=== PATIENT | male | born 1930 | race Caucasian/White ===

== ENCOUNTER → 2017-03-14 | Outpatient (CLI) | payer OTHER ==
[~2017-03-14] MED LIST: ASCO1POW10 PO; ASPI81TA28 PO; B COMPLEX PO; CLOP1TAB5 PO; GLIP10TA10 PO; HYT/2 PO; INSUINJ7 SC; INSUINJ8 SC; LISI-729 PO; METO25TA56 PO; NRT25 PO; SIMV40TA4 PO; SYN50 PO; VITAMIN D PO; Vitamins PO; ZNT/150 PO; [UNRECOGNIZED DRUG - OTHER] PO
--- NOTE | 2017-03-14 15:58 | DIAGNOSTIC IMAGING REPORT ---
Brain MRI WITHOUT CONTRAST HISTORY: H53.139 Sudden loss of [id number] TECHNIQUE: Multiplanar multisequence MRI of the brain was performed without the use of contrast. COMPARISON STUDY: Head CT 03/14/2016. Brain MRI 05/30/2015. FINDINGS: Brain parenchyma: There are age-related involutional changes noting mild to moderate subcortical and periventricular microangiopathic disease. There is right occipital encephalomalacia consistent with remote infarct. There is no hemorrhage or mass effect. There is no restricted diffusion to suggest acute ischemia. Rodríguez-white matter differentiation is preserved. No extra-axial fluid collection is seen. The cerebellar tonsils are normal in configuration. Ventricles, sulci, and cisterns: Prominent secondary to involutional change. Pituitary and sella: Unremarkable. Intracranial vasculature: Normal flow voids are maintained at the skull base. Orbits: The bony orbits are grossly intact. Orbital contents are normal in appearance noting bilateral ocular lens implants. Sinuses and mastoids: Clear. Calvarium: Unremarkable. Cervical cord: Partially visualized cervical spinal cord is normal in morphology and signal intensity. IMPRESSION: 1. No change from the prior study. Senescent changes as above with no hemorrhage, mass effect, or evidence of acute ischemia. 2. There is right occipital encephalomalacia consistent with an old infarct. Electronically signed by: Lorne Dawn M.D. 03/14/2017 3:56 PM Dictated Date/Time: 03/14/2017 3:49 PM
== END | disposition home or self-care (01) ==
LOC: C.MRI 14:36
PROVIDERS: ATTEND Psychiatry & Neurology Neurology
DX: H53.139 Sudden visual loss, unspecified eye (principal); G93.89 Other specified disorders of brain

== ENCOUNTER 2017-06-18 22:13 | Observation (INO) | payer OTHER ==
[~2017-06-18] VITALS: Ht 188 cm; Wt 107.7 kg
--- NOTE | 2017-06-18 22:25 | DIAGNOSTIC IMAGING REPORT ---
CT SCAN OF THE BRAIN WITHOUT IV CONTRAST CLINICAL HISTORY: Strokelike symptoms. COMPARISON STUDY: CT of the brain dated 03/14/2016. MRI of the brain dated . TECHNIQUE: Unenhanced axial CT scan of the brain is performed from the vertex to the skull base. A dose lowering technique was utilized adhering to the principles of ALARA. CT DOSE: 724.83 mGy.cm FINDINGS: Brain parenchyma: There are age-related involutional changes noting moderate subcortical and periventricular microangiopathic change. Right occipital encephalomalacia is unchanged and consistent with a remote infarct. There is no hemorrhage, mass effect, or evidence of acute territorial ischemia by CT criteria. Rodríguez-white matter is preserved. No extra-axial fluid collection is seen. Ventricles, sulci, cisterns: Prominent secondary to involutional change. Intracranial vasculature: There is advanced atherosclerotic calcification of the cavernous carotid and vertebral arteries. Calvarium: Unremarkable. Sinuses and mastoids: The visualized paranasal sinuses are clear. The mastoid air cells are well pneumatized. Orbits: The bony orbits are grossly intact. There are bilateral ocular lens implants. IMPRESSION: Senescent changes and remote infarct as above. There is no hemorrhage, mass effect, or evidence of acute territorial ischemia by CT criteria. Electronically signed by: Kevin Ge M.D. 06/18/2017 10:24 PM Dictated Date/Time: 06/18/2017 10:21 PM
--- NOTE | 2017-06-18 22:41 | DIAGNOSTIC IMAGING REPORT ---
SINGLE VIEW CHEST CLINICAL HISTORY: Weakness. Change in mental status. FINDINGS: An AP, portable, upright chest radiograph is compared to study dated 02/03/2016. The examination is degraded by portable technique and patient rotation. The patient is status post midline sternotomy. The heart is enlarged and there is atherosclerotic calcification of the thoracic aorta. The pulmonary vasculature is noncongested. Bibasilar atelectasis is noted. No airspace consolidation or large pleural effusion is identified. No pneumothorax is seen. The skeletal structures are osteopenic. The bony thorax is grossly intact. Atherosclerotic calcification is noted in the carotid bulbs. IMPRESSION: Cardiomegaly with no acute cardiopulmonary abnormality. Electronically signed by: Kevin Ge M.D. 06/18/2017 10:40 PM Dictated Date/Time: 06/18/2017 10:39 PM
[2017-06-18 23:12] LABS: BASO % 0.4 %; BASO ABS # 0.05 K/uL (0-0.2); EOS % 2.6 %; EOS ABS # 0.34 K/uL (0-0.5); HEMOGLOBIN 13.9 g/dL (14.0-18.0); IG# 0.03 K/uL (0.00-0.02); LYMPH % 31.8 %; LYMPH ABS # 4.17 K/uL (1.2-3.4); MEAN CELL VOLUME 90.1 fL (80-100); MEAN CORPUSCULAR HEMOGLOBIN 30.5 pg (25-34); MEAN CORPUSCULAR HGB CONC 33.9 g/dl (32-36); MEAN PLATELET VOLUME 11.8 fL (7.4-10.4); MONO % 10.7 %; NEUT % 54.3 %; NEUT ABS # 7.12 K/uL (1.4-6.5); PLATELET COUNT 214 K/uL (130-400); RED CELL DISTRIBUTION WIDTH CV 13.7 % (11.5-14.5); RED CELL DISTRIBUTION WIDTH SD 45.2 fL (36.4-46.3); WHITE BLOOD COUNT 13.11 K/uL (4.8-10.8)
[2017-06-18 23:31] LABS: ALBUMIN 2.8 gm/dl (3.4-5.0); ALT/SGPT 23 U/L (12-78); BLOOD UREA NITROGEN 13 mg/dl (7-18); CALCIUM 8.2 mg/dl (8.5-10.1); CARBON DIOXIDE 25 mmol/L (21-32); CREATININE 1.44 mg/dl (0.60-1.40); GLUCOSE 106 mg/dl (70-99); LIPASE 115 U/L (73-393); POTASSIUM 4.1 mmol/L (3.5-5.1); SODIUM 135 mmol/L (136-145)
[2017-06-18 23:40] LABS: ALKALINE PHOSPHATASE 59 U/L (45-117); AST/SGOT 18 U/L (15-37); CKMB 0.7 ng/ml (0.5-3.6)
[2017-06-19] VITALS (10 sets, daily range): BP systolic 109–151; BP diastolic 61–78; PULSE 57–69; TEMP 36.2–36.8; O2SAT 94–97; Ht 188 cm; Wt 107.7 kg
--- NOTE | 2017-06-19 02:40 | EMERGENCY ROOM VISIT NOTE ---
History Report prepared by Giovanny: Sherwin Flores Under the Supervision of: Dr. Alverto Howard D.O. First contact with patient: 22:17 Chief Complaint: STROKE SYMPTOMS Stated Complaint: STROKE ALERT History of Present Illness The patient is an 86 year old male who presents to the Emergency Room with complaints of an episode of resolved weakness that occurred prior to arrival. The nursing staff states when EMS was called, the patient did not know he was the kitchen and was not oriented. They report when EMS arrived, the patient was able to explain where he was and who he is. Nursing staff notes the patient's blood sugar was 150 for EMS and 118 in the room. The patient's only stated complaint is trouble swallowing that developed a couple days ago. He denies chest pain, shortness of breath, and abdominal pain. Source of History: patient, nursing staff Onset: DRILLING [employer]VIS[employer] Position: other (global) Quality: other (weakness) Timing: resolved Associated Symptoms: No chest pain, No SOB, No abdominal pain Note: Associated symptoms: trouble swallowing Review of Systems See HPI for pertinent positives & negatives. A total of 10 systems reviewed and were otherwise negative. Past Medical & Surgical Medical Problems: (1) Diabetes (2) Fall (3) Hand contusion (4) Progressive supranuclear palsy (5) Stroke Family History Patient reports no known family medical history. Social History Smoking Status: Never Smoker Alcohol Use: none Drug Use: none Marital Status: Occupation Status: retired Current/Historical Medications Scheduled Ascorbic Acid (Vitamin C), 3.5 GM PO QAM Aspirin (Aspirin Ec), 81 MG PO QAM Clopidogrel Bisulfate (Plavix), 75 MG PO HS Glipizide (Glipizide), 15 MG PO QAM Insulin (Novolin R), UNITS SC UD Insulin Nph (Novolin-N), 30 UNITS SC BID Levothyroxine Sodium (Synthroid), 50 MCG PO QAM Lisinopril (Zestril), 2.5 MG PO QAM Metoprolol Tartrate (Lopressor) (Lopressor), 25 MG PO QAM Nortriptyline HCl (Nortriptyline HCl), 25 MG PO HS Ranitidine Hcl (Zantac), 150 MG PO BID Simvastatin (Zocor), 20 MG PO HS Terazosin Hcl (Hytrin), 4 MG PO HS [B Complex], 3.5 GM PO QAM [Vitamin D & K], 3.5 GM PO QAM [Vitamins], 1 DOSE PO QAM Allergies Coded Allergies: No Known Allergies (Unverified , 06/18/17) Physical Exam Vital Signs Date Time Temp Pulse Resp B/P (MAP) Pulse Ox O2 Delivery O2 Flow Rate FiO2 06/19/17 01:06 60 112/64 95 Room Air 06/18/17 23:21 61 24 112/60 93 Room Air 06/18/17 22:47 92 Room Air 06/18/17 22:36 37.7 64 20 123/65 93 Room Air 06/18/17 22:31 68 Physical Exam VITAL SIGNS: were reviewed as above. GENERAL:Non-toxic in appearance. SKIN: Warm dry and pink. HEAD: Normocephalic and atraumatic. OROPHARYNX: Is clear and moist NECK: Supple without lymphadenopathy or meningismus. LUNGS: clear. HEART: Regular rate and rhythm. ABDOMEN: Soft and nontender. EXTREMITIES: Warm and well perfused. NEUROLOGICALLY: Awake alert and oriented without focal deficit. Cranial nerves 2 -12 are intact. There is no pronator drift. Cerebellar testing is within normal limits. There is no nystagmus. There is no facial droop. Speech is clear. Vision is grossly normal. MUSCULOSKELETAL: Good muscle tone. No evidence of trauma. Medical Decision & Procedures ER Provider Diagnostic Interpretation: Radiology results as stated below per my review and radiologist interpretation: CT SCAN OF THE BRAIN WITHOUT IV CONTRAST CLINICAL HISTORY: Strokelike symptoms. COMPARISON STUDY: CT of the brain dated 03/14/2016. MRI of the brain dated . TECHNIQUE: Unenhanced axial CT scan of the brain is performed from the vertex to the skull base. A dose lowering technique was utilized adhering to the principles of ALARA. CT DOSE: 724.83 mGy.cm FINDINGS: Brain parenchyma: There are age-related involutional changes noting moderate subcortical and periventricular microangiopathic change. Right occipital encephalomalacia is unchanged and consistent with a remote infarct. There is no hemorrhage, mass effect, or evidence of acute territorial ischemia by CT criteria. Rodríguez-white matter is preserved. No extra-axial fluid collection is seen. Ventricles, sulci, cisterns: Prominent secondary to involutional change. Intracranial vasculature: There is advanced atherosclerotic calcification of the cavernous carotid and vertebral arteries. Calvarium: Unremarkable. Sinuses and mastoids: The visualized paranasal sinuses are clear. The mastoid air cells are well pneumatized. Orbits: The bony orbits are grossly intact. There are bilateral ocular lens implants. IMPRESSION: Senescent changes and remote infarct as above. There is no hemorrhage, mass effect, or evidence of acute territorial ischemia by CT criteria. Electronically signed by: Kevin Ge M.D. 06/18/2017 10:24 PM Dictated Date/Time: 06/18/2017 10:21 PM SINGLE VIEW CHEST CLINICAL HISTORY: Weakness. Change in mental status. FINDINGS: An AP, portable, upright chest radiograph is compared to study dated 02/03/2016. The examination is degraded by portable technique and patient rotation. The patient is status post midline sternotomy. The heart is enlarged and there is atherosclerotic calcification of the thoracic aorta. The pulmonary vasculature is noncongested. Bibasilar atelectasis is noted. No airspace consolidation or large pleural effusion is identified. No pneumothorax is seen. The skeletal structures are osteopenic. The bony thorax is grossly intact. Atherosclerotic calcification is noted in the carotid bulbs. IMPRESSION: Cardiomegaly with no acute cardiopulmonary abnormality. Electronically signed by: Kevin Ge M.D. 06/18/2017 10:40 PM Dictated Date/Time: 06/18/2017 10:39 PM Laboratory Results 06/18/17 22:33 Red Blood Count 4.55, Mean Corpuscular Volume 90.1, Mean Corpuscular Hemoglobin 30.5, Mean Corpuscular Hemoglobin Concent 33.9, Mean Platelet Volume 11.8, Neutrophils (%) (Auto) 54.3, Lymphocytes (%) (Auto) 31.8, Monocytes (%) (Auto) 10.7, Eosinophils (%) (Auto) 2.6, Basophils (%) (Auto) 0.4, Neutrophils # (Auto ) 7.12, Lymphocytes # (Auto) 4.17, Monocytes # (Auto) 1.40, Eosinophils # (Auto ) 0.34, Basophils # (Auto) 0.05 06/18/17 22:33 Test 06/18/17 22:25 06/18/17 22:33 06/18/17 23:00 Bedside Prothrombin Time INR 1.1 (0.9-1.1) Bedside Glucose 118 mg/dl (70-99) White Blood Count 13.11 K/uL (4.8-10.8) Red Blood Count 4.55 M/uL (4.7-6.1) Hemoglobin 13.9 g/dL (14.0-18.0) Hematocrit 41.0 % (42-52) Mean Corpuscular Volume 90.1 fL (80-100) Mean Corpuscular Hemoglobin 30.5 pg (25-34) Mean Corpuscular Hemoglobin Concent 33.9 g/dl (32-36) Platelet Count 214 K/uL (130-400) Mean Platelet Volume 11.8 fL (7.4-10.4) Neutrophils (%) (Auto) 54.3 % Lymphocytes (%) (Auto) 31.8 % Monocytes (%) (Auto) 10.7 % Eosinophils (%) (Auto) 2.6 % Basophils (%) (Auto) 0.4 % Neutrophils # (Auto) 7.12 K/uL (1.4-6.5) Lymphocytes # (Auto) 4.17 K/uL (1.2-3.4) Monocytes # (Auto) 1.40 K/uL (0.11-0.59) Eosinophils # (Auto) 0.34 K/uL (0-0.5) Basophils # (Auto) 0.05 K/uL (0-0.2) RDW Standard Deviation 45.2 fL (36.4-46.3) RDW Coefficient of Variation 13.7 % (11.5-14.5) Immature Granulocyte % (Auto) 0.2 % Immature Granulocyte # (Auto) 0.03 K/uL (0.00-0.02) Prothrombin Time 10.8 SECONDS (9.0-12.0) Prothromb Time International Ratio 1.0 (0.9-1.1) Activated Partial Thromboplast Time 28.0 SECONDS (21.0-31.0) Partial Thromboplastin Ratio 1.1 Anion Gap 7.0 mmol/L (3-11) Est Creatinine Clear Calc Drug Dose 50.0 ml/min Estimated GFR () 51.0 Estimated GFR (Non- 44.0 BUN/Creatinine Ratio 9.2 (10-20) Calcium Level 8.2 mg/dl (8.5-10.1) Magnesium Level 1.8 mg/dl (1.8-2.4) Total Bilirubin 0.4 mg/dl (0.2-1) Direct Bilirubin 0.1 mg/dl (0-0.2) Aspartate Amino Transf (AST/SGOT) 18 U/L (15-37) Alanine Aminotransferase (ALT/SGPT) 23 U/L (12-78) Alkaline Phosphatase 59 U/L (45-117) Total Creatine Kinase 81 U/L (39-308) Creatine Kinase MB 0.7 ng/ml (0.5-3.6) Creatine Kinase MB Ratio 0.9 (0-3.0) Troponin I < 0.015 ng/ml (0-0.045) Total Protein 7.0 gm/dl (6.4-8.2) Albumin 2.8 gm/dl (3.4-5.0) Lipase 115 U/L (73-393) Thyroid Stimulating Hormone (TSH) 2.460 uIu/ml (0.300-4.500) Urine Color DK YELLOW Urine Appearance CLEAR (CLEAR) Urine pH 6.5 (4.5-7.5) Urine Specific Robinson 1.023 (1.000-1.030) Urine Protein NEG (NEG) Urine Glucose (UA) NEG (NEG) Urine Ketones TRACE (NEG) Urine Occult Blood NEG (NEG) Urine Nitrite NEG (NEG) Urine Bilirubin NEG (NEG) Urine Urobilinogen NEG (NEG) Urine Leukocyte Esterase NEG (NEG) Urine WBC (Auto) 1-5 /hpf (0-5) Urine RBC (Auto) 0-4 /hpf (0-4) Urine Hyaline Casts (Auto) 0 /lpf (0-5) Urine Epithelial Cells (Auto) 5-10 /lpf (0-5) Urine Bacteria (Auto) NEG (NEG) Laboratory results as stated above per my review. ECG Indication: weakness Rate (beats per minute): 61 Rhythm: normal sinus Findings: no acute ischemic change, no ectopy ED Course 2224: Previous medical records were reviewed. The patient was evaluated in room B01. A complete history and physical examination was performed. 0158: The patient is going to try and ambulate with a walker. If he is able to ambulate without difficulty, he will be discharged home. 0214: On reevaluation, the patient is unable to support himself and ambulate with a walker. I discussed the results and findings with him. The patient verbalized agreement of the treatment plan. The patient will be evaluated for further management and care. 226: I discussed the patient's case with Dr. Manish Stearns, [facility] Hospitalist. The patient will be evaluated for further management and care. Medical Decision Differentials include: Acute coronary syndrome, myocardial infarction, CVA, TIA , anemia, infection, pneumonia, UTI, pyelonephritis, poor nutrition, dehydration , electrolyte disturbance, and hypoglycemia. This is a 86-year-old male who presents to the ED with a chief complaint of generalized weakness. The patient, according to the , normally walks with a walker. Today he was walking with a walker and suddenly started dragging his leg. She states that then he was unable to bear his weight and she had the lower abdomen around. EMS was called and the patient was brought in. He was initially a stroke alert because of some slurring of speech. This is apparently chronic and the patient has some history of dysphagia. The patient' s neurological exam here on his arrival did not reveal any obvious stroke symptoms. He was moving all 4 extremities. He is answering questions appropriately. He does report a sore throat. Throat appeared to be clear. There is no exudates or ulcerations. His breathing appears to be comfortable. CT scan of the brain revealed no acute abnormalities. Chest x-ray was negative for acute disease. Urine did not show infection. There was trace ketones. CBC is unremarkable, complete metabolic panel was unremarkable and troponin was negative. EKG not show ischemic changes. After evaluation, the patient underwent an ambulatory trial here. He was unable to bear his own weight on a walker. The patient has reportedly been going to [facility] rehabilitation as an outpatient. I did suggest to the that he may benefit from inpatient rehabilitation. The patient will be seen by the hospitalist service for further inpatient evaluation and care. There is no obvious stroke on my exam and I think that he might have a virus as he reports a sore throat. This might be causing some additional deconditioning and weakness that resulted in the patient's symptoms tonight. Medication Reconcilliation Current Medication List: was personally reviewed by me Blood Pressure Screening Patient's blood pressure: Normal blood pressure Blood pressure disposition: Did not require urgent referral Consults Time Called: 220 Consulting Physician: Dr. Manish Stearns, [facility] Hospitalist Returned Call: [phone] I discussed the patient's case with Dr. Manish Stearns [facility] Hospitalist. The patient will be evaluated for further management and care. Impression Primary Impression: Weakness Scribe Attestation The scribe's documentation has been prepared under my direction and personally reviewed by me in its entirety. I confirm that the note above accurately reflects all work, treatment, procedures, and medical decision making performed by me. Departure Information Dispostion Being Evaluated By Hospitalist Referrals Lorne Garrett D.O. (PCP) Patient Instructions My [facility]
[2017-06-19] MEDS ORDERED: GLUCOSE 40% GEL 15 GM TUBE PO PRN (04:15)
[2017-06-19] MEDS ORDERED: GLUCOSE 10 TABS/TUBE PO PRN (04:15)
[2017-06-19] MEDS ORDERED: ONDANSETRON INJ 2 MG/ML 2 ML VIAL IV PRN (04:15)
[2017-06-19] MEDS ORDERED: DEXTROSE 50% 50 ML SYR IV PRN (04:15)
[2017-06-19] MEDS ORDERED: MAGNESIUM HYDROXIDE SUSP 30 ML UDC PO PRN (04:15)
[2017-06-19] MEDS ORDERED: GLUCAGON FOR INJ 1 MG VIAL SQ PRN (04:15)
[2017-06-19] MEDS ORDERED: ACETAMINOPHEN 325 MG TAB PO PRN (04:15)
--- NOTE | 2017-06-19 04:27 | History and Physical ---
History & Physical Date & Time of Service: Jun 19, 2017 at 04:22 Chief Complaint: Stroke Alert Primary Care Physician: Lorne Garrett D.O. History of Present Illness Source: patient, family Patient is an 86 year old male with a past medical history of progressive supranuclear palsy, stroke, hypertension, hyperlipidemia, and diabetes that presents after experiencing an episode of weakness and disorientation at 9:30 pm yesterday evening. The patient was with his when he got up to go to bed and while using his walker after a few steps he started dragging his right foot , followed by leaning to his right, and finally falling over on the counter in the kitchen. The patients daughter called the EMS who at that time stated he was disoriented. The patient had a similar episode of unsteadiness one week prior on the 10 of June but that resolved quickly and did not require medical treatment. The patient also has had a sore throat for the last 3 days but no additional symptoms. On arrival to the ED the patient was found to be alert and oriented and his weakness at that time had resolved. His head CT was found to be normal and his only significant lab abnormality was a borderline elevated white count. The patient currently goes to rehab twice per week at [facility] and the family was very concerned with his recent mobility, also stating that he has recently had prisms placed with his glasses and is now seeing in monovision for the first time since his stroke 10 years ago. The patient has had recurrent slowed speech, vision abnormalities, short term memory loss, and mobility issues since he suffered his stroke 10 years ago during bypass surgery. The patient has seen Dr. Kenney in the past who diagnosed him with progressive supranuclear palsy. At this time the patient denies any headache, fever, or chills, and his family states he is at his baseline speech, cognitive function, and orientation. Past Medical/Surgical History Medical Problems: (1) Diabetes Status: Chronic (2) Fall Status: Resolved (3) Hand contusion Status: Resolved (4) Stroke Status: Resolved Family History Patient reports no known family medical history. Social History Smoking Status: Never Smoker Smokeless Tobacco Use: No Alcohol Use: none Drug Use: none Marital Status: Housing status: lives with family Occupational Status: retired Immunizations History of Influenza Vaccine: Unknown History of Tetanus Vaccine?: Unknown History of Pneumococcal: Unknown History of Hepatitis B Vaccine: Unknown Multi-Drug Resistant Organisms History of MDRO: No Allergies Coded Allergies: No Known Allergies (Unverified , 06/18/17) Home Medications Scheduled Ascorbic Acid (Vitamin C), 3.5 GM PO QAM Aspirin (Aspirin Ec), 81 MG PO QAM Clopidogrel Bisulfate (Plavix), 75 MG PO HS Glipizide (Glipizide), 15 MG PO QAM Insulin (Novolin R), UNITS SC UD Insulin Nph (Novolin-N), 30 UNITS SC BID Levothyroxine Sodium (Synthroid), 50 MCG PO QAM Lisinopril (Zestril), 2.5 MG PO QAM Metoprolol Tartrate (Lopressor) (Lopressor), 25 MG PO QAM Nortriptyline HCl (Nortriptyline HCl), 25 MG PO HS Ranitidine Hcl (Zantac), 150 MG PO BID Simvastatin (Zocor), 20 MG PO HS Terazosin Hcl (Hytrin), 4 MG PO HS [B Complex], 3.5 GM PO QAM [Vitamin D & K], 3.5 GM PO QAM [Vitamins], 1 DOSE PO QAM Review of Systems Constitutional: + weakness, + fatigue, No fever, No chills, No weight loss Eyes: No worsening of vision, No diplopia ENT: + sore throat, No hearing loss, No tinnitus Respiratory: No cough, No sputum, No shortness of breath Cardiovascular: No chest pain, No palpitations Abdomen: No pain, No nausea, No vomiting Genitourinary - Male: No hematuria, No dysuria Neurologic: + memory loss, + weakness, + balance problems, No numbness/tingling , No vertigo Endocrine: + fatigue, No excessive urination Physical Exam Vital Signs Date Time Temp Pulse Resp B/P (MAP) Pulse Ox O2 Delivery O2 Flow Rate FiO2 06/19/17 02:39 60 112/64 95 Room Air 06/19/17 01:06 60 112/64 95 Room Air 06/18/17 23:21 61 24 112/60 93 Room Air 06/18/17 22:47 92 Room Air 06/18/17 22:36 37.7 64 20 123/65 93 Room Air 06/18/17 22:31 68 General Appearance: WD/WN, no apparent distress Head: normocephalic, atraumatic Eyes: normal inspection, sclerae normal ENT: + pertinent finding (Cerumen impaction) Neck: supple, no JVD, no carotid bruits Respiratory/Chest: chest non-tender, lungs clear, normal breath sounds Cardiovascular: regular rate, rhythm, no gallop, no murmur Abdomen/GI: normal bowel sounds, non tender, soft Extremities/Musculoskelatal: normal inspection, no calf tenderness, no pedal edema Neurologic/Psych: manager supplier II-XII nml as tested, alert, oriented x 3, + pertinent finding (Slowed speech) Diagnostics Laboratory Results Results Past 24 Hours Test 06/18/17 22:25 06/18/17 22:33 06/18/17 23:00 Range/Units Bedside Prothrombin Time INR 1.1 0.9-1.1 Bedside Glucose 118 70-99 mg/dl White Blood Count 13.11 4.8-10.8 K/uL Red Blood Count 4.55 4.7-6.1 M/uL Hemoglobin 13.9 14.0-18.0 g/dL Hematocrit 41.0 42-52 % Mean Corpuscular Volume 90.1 80-100 fL Mean Corpuscular Hemoglobin 30.5 25-34 pg Mean Corpuscular Hemoglobin Concent 33.9 32-36 g/dl Platelet Count 214 130-400 K/uL Mean Platelet Volume 11.8 7.4-10.4 fL Neutrophils (%) (Auto) 54.3 % Lymphocytes (%) (Auto) 31.8 % Monocytes (%) (Auto) 10.7 % Eosinophils (%) (Auto) 2.6 % Basophils (%) (Auto) 0.4 % Neutrophils # (Auto) 7.12 1.4-6.5 K/uL Lymphocytes # (Auto) 4.17 1.2-3.4 K/uL Monocytes # (Auto) 1.40 0.11-0.59 K/uL Eosinophils # (Auto) 0.34 0-0.5 K/uL Basophils # (Auto) 0.05 0-0.2 K/uL RDW Standard Deviation 45.2 36.4-46.3 fL RDW Coefficient of Variation 13.7 11.5-14.5 % Immature Granulocyte % (Auto) 0.2 % Immature Granulocyte # (Auto) 0.03 0.00-0.02 K/uL Prothrombin Time 10.8 9.0-12.0 SECONDS Prothromb Time International Ratio 1.0 0.9-1.1 Activated Partial Thromboplast Time 28.0 21.0-31.0 SECONDS Partial Thromboplastin Ratio 1.1 Sodium Level 135 136-145 mmol/L Potassium Level 4.1 3.5-5.1 mmol/L Chloride Level 103 98-107 mmol/L Carbon Dioxide Level 25 21-32 mmol/L Anion Gap 7.0 3-11 mmol/L Blood Urea Nitrogen 13 7-18 mg/dl Creatinine 1.44 0.60-1.40 mg/dl Est Creatinine Clear Calc Drug Dose 50.0 ml/min Estimated GFR () 51.0 Estimated GFR (Non- 44.0 BUN/Creatinine Ratio 9.2 10-20 Random Glucose 106 70-99 mg/dl Calcium Level 8.2 8.5-10.1 mg/dl Magnesium Level 1.8 1.8-2.4 mg/dl Total Bilirubin 0.4 0.2-1 mg/dl Direct Bilirubin 0.1 0-0.2 mg/dl Aspartate Amino Transf (AST/SGOT) 18 15-37 U/L Alanine Aminotransferase (ALT/SGPT) 23 12-78 U/L Alkaline Phosphatase 59 45-117 U/L Total Creatine Kinase 81 39-308 U/L Creatine Kinase MB 0.7 0.5-3.6 ng/ml Creatine Kinase MB Ratio 0.9 0-3.0 Troponin I < 0.015 0-0.045 ng/ml Total Protein 7.0 6.4-8.2 gm/dl Albumin 2.8 3.4-5.0 gm/dl Lipase 115 73-393 U/L Thyroid Stimulating Hormone (TSH) 2.460 0.300-4.500 uIu/ml Urine Color DK YELLOW Urine Appearance CLEAR CLEAR Urine pH 6.5 4.5-7.5 Urine Specific [place] 1.023 1.000-1.030 Urine Protein NEG NEG Urine Glucose (UA) NEG NEG Urine Ketones TRACE NEG Urine Occult Blood NEG NEG Urine Nitrite NEG NEG Urine Bilirubin NEG NEG Urine Urobilinogen NEG NEG Urine Leukocyte Esterase NEG NEG Urine WBC (Auto) 1-5 0-5 /hpf Urine RBC (Auto) 0-4 0-4 /hpf Urine Hyaline Casts (Auto) 0 0-5 /lpf Urine Epithelial Cells (Auto) 5-10 0-5 /lpf Urine Bacteria (Auto) NEG NEG Impression Assessment and Plan Patient is an 86 year old male with a past medical history of progressive supranuclear palsy, stroke, hypertension, hyperlipidemia, and diabetes that presents after experiencing an episode of weakness and disorientation at 9:30pm yesterday evening. 1) Generalized Weakness - Admit to telemetry - CT Head: Senescent changes and remote infarct. There is no hemorrhage, mass effect, or evidence of acute territorial ischemia. - MRI Brain Combo - Carotid Doppler - X-Ray lumbar spine and pelvis - Neurology consult - PT/OT 2) CAD - Resume home Aspirin and Plavix - Monitor on telemetry - Troponin 0.015 3) Diabetes Mellitus - BSG currently well controlled with Metformin and Insulin at home - Has not eaten since 8am yesterday --> At this time will order sliding scale insulin and hold other home insulins - HbA1c 4) Hypertension - Resume home Lisinopril and Lopressor 5) Hypothyroidism - Resume home Synthroid 6) Hyperlipidemia - Resume home Zocor 7) BPH - Resume home Hytrin 8) DVT Prophylaxis - SCDs 9) Code Status - Full Resuscitation Attending addendum: I have physically seen this patient, have supervised the medical residents activities, and agree with the H&P unless as otherwise noted. Assessment and Plan: Episode of Generalized weakness and disorientation/history of progressive supranuclear palsy/CVA/normal CT of head for acute event-- Question of dragging like while attempting to walk Order MRI of brain combo and carotid Dopplers Order x-ray lumbar spine, pelvis and hips Consult PT/OT/social science teacher/neurology CAD/hypertension-- The patient will be admitted to telemetry for serial cardiac enzymes, serial EKG's, cardiac rhythm monitoring and a 2-D echocardiogram with Dopplers. Continue aspirin, Plavix, lisinopril and Metoprolol tartrate. Level of Care Telemetry Advanced Directives Existing Advance Directive: No Existing Living Will: No Existing Power of Facilities Management Executive: No Resuscitation Status FULL RESUSCITATION VTE Prophylaxis VTE Risk Assessment Done? Y/N: Yes Risk Level: Moderate Given or contraindicated: SCD's Resident Tracking Resident Involvement: Resident Care Provided Care Provided: Adult [facility]
[2017-06-19] MEDS ORDERED: IV FLUIDS COMPLETED PRN (04:45)
[2017-06-19] MEDS: SODIUM CHLORIDE 0.9% 1000ML 1,000 ML IV SCH ×2 (06:41→19:29)
--- NOTE | 2017-06-19 06:47 | DIAGNOSTIC IMAGING REPORT ---
CAROTID DOPPLER NECK ART HISTORY: Mental status change weakness COMPARISON: None. TECHNIQUE: Real-time, grayscale, and color Doppler sonography of the carotid arteries was performed. Imaging reviewed in the transverse and longitudinal planes. All measurements were calculated based on NASCET criteria. FINDINGS: Antegrade flow is seen in the bilateral vertebral arteries. The brachial pressures are hemodynamically similar. Moderate plaque formation bilaterally The peak systolic velocity within the right ICA is 96. The right systolic ratio is 0.9. The peak systolic velocity within the left ICA is 154. The left systolic ratio is 1.5. IMPRESSION: 1. 50-60% stenosis left internal carotid artery. 2. Moderate plaque formation bilaterally. The above report was generated using voice recognition software. It may contain grammatical, syntax or spelling errors. Electronically signed by: Ramon Saldivar M.D. 06/19/2017 6:46 AM Dictated Date/Time: 06/19/2017 6:45 AM
--- NOTE | 2017-06-19 07:09 | DIAGNOSTIC IMAGING REPORT ---
FLUOROSCOPIC IMAGES OF THE LUMBAR SPINE CLINICAL HISTORY: Lower extremity weakness. COMPARISON: Lumbar spine CT February 03, 2016. FLUOROSCOPY TIME: FINDINGS: No acute lumbar spine fracture is identified. There is mild levoscoliosis of the lumbar spine. Mild retrolisthesis of L2 on L3 with marked disc space narrowing at this level is noted. There is moderate multilevel facet arthrosis. Extensive atherosclerotic calcification of the abdominal aorta is incidentally noted. IMPRESSION: 1. No acute lumbar spine fracture or subluxation. 2. Severe disc space narrowing at L2-L3. Overall, moderate multilevel degenerative disc disease and facet arthrosis. 3. Mild levoscoliosis of the lumbar spine. Electronically signed by: Joshua Willis M.D. 06/19/2017 7:07 AM Dictated Date/Time: 06/19/2017 7:05 AM
--- NOTE | 2017-06-19 07:20 | DIAGNOSTIC IMAGING REPORT ---
PELVIS ONE VIEW HISTORY: lower extremity weakness COMPARISON: None. FINDINGS: There is no fracture or dislocation. Soft tissues are unremarkable. Mild osteoarthritis within the bilateral hips. Vascular calcifications are noted. The sacrum appears intact. IMPRESSION: No fracture or dislocation within the pelvis or hips. Electronically signed by: Lorne Dawn M.D. 06/19/2017 7:19 AM Dictated Date/Time: 06/19/2017 7:17 AM
[2017-06-19] MEDS ORDERED: GADAVIST IV PRN (08:30)
--- NOTE | 2017-06-19 09:00 | DIAGNOSTIC IMAGING REPORT ---
MRI OF THE BRAIN WITHOUT AND WITH IV CONTRAST CLINICAL HISTORY: Generalized weakness. COMPARISON STUDY: MRI the brain March 14, [address] June 18, 2017. TECHNIQUE: Utilizing a 1.5 Naz magnet and dedicated coil, multiplanar, multiecho imaging of the brain was performed pre and postcontrast administration. IV administration of 10.5 mL of Gadavist contrast was uneventful. FINDINGS: There are no foci of restricted diffusion. No acute intracranial hemorrhage, midline shift or mass effect is present. Ventricular dilatation is unchanged and due to atrophy. There is extensive atrophy. An old infarct within the right occipital lobe is noted. There is no intracranial mass or pathologic enhancement. Flow-voids for the major intracranial vessels are present. There is mild mucosal thickening of the ethmoid sinuses. Orbits are unremarkable. Calvarial signal is maintained. The appearance of the brain is unchanged study of March 14, 2017. White matter T2 hyperintense foci represent small vessel disease. IMPRESSION: 1. No acute intracranial findings. 2. No change since MRI of March 14, 2017. Old right occipital lobe infarct and extensive atrophy. Electronically signed by: Joshua Willis M.D. 06/19/2017 8:58 AM Dictated Date/Time: 06/19/2017 8:41 AM
[2017-06-19] MEDS ORDERED: PERFLUTREN LIPID MICROSPHERE (DEFINITY) IV ONE (09:28)
[2017-06-19] MEDS: INSULIN ASPART 100 UNITS/ML 3 ML PEN SC SCH ×4 (09:50→20:24)
--- NOTE | 2017-06-19 10:26 | Neurology Consultation ---
Neurology Consultation Date of Consultation: Jun 19, 2017. Attending Physician: Trey Story M.D. Primary Care Physician: Lorne Garrett D.O. Reason for Consultation: Weakness History of Present Illness Source: clinic records, hospital records The patient is an 86-year-old male who has been admitted to the hospital for further evaluation and management of an episode of weakness and confusion that occurred prior to arrival and has subsequently resolved. 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 Kenney for the past few years. His condition has been characterized by progressive gait dysfunction, episodic retropulsion, persistent dysarthria, vertical gaze palsy, and mild dementia. He has not tolerated a previous trial of levodopa. Unfortunately, his neurodegenerative condition has continued to decline. He was last seen in the outpatient clinic on 03/28/2017. Outpatient physical therapy have been recommended. However, in light of this patient's progressive deterioration it was felt that inpatient assessment was most appropriate. Past medical history also notable for a chronic right occipital lobe infarct and diabetes mellitus. Currently, the patient does not have any new or specific complaints although he seems to be a limited historian. I reviewed the CT of the head completed upon presentation. The study reveals a chronic right occipital lobe infarct as well as a moderate degree of chronic microangiopathic disease. A carotid duplex reveals a 50-60% stenosis of the left internal carotid artery. I reviewed the images and radiologist's interpretation of the recently completed brain MRI. This study reveals the chronic right occipital lobe infarct, generalized atrophy, and chronic microangiopathic disease. There is no evidence of acute or subacute process. Past Medical/Surgical History Medical Problems: (1) Food impaction of esophagus Status: Acute (2) Head contusion Status: Acute (3) Weakness Status: Acute Family History Noncontributory Social History Drug Use: none Marital Status: Occupation Status: retired Allergies Coded Allergies: No Known Allergies (Unverified , 06/18/17) Current Inpatient Medications Current Inpatient Medications Medications (Trade) Dose Ordered Sig/Ezra Route Start Time Stop Time Status Last Admin Dose Admin Acetaminophen (Tylenol Tab) 650 mg Q4H PRN PO 06/19/17 04:15 07/19/17 04:14 Magnesium Hydroxide (Milk Of Magnesia Susp) 30 ml Q12H PRN PO 06/19/17 04:15 07/19/17 04:14 Ondansetron HCl (Zofran Inj) 4 mg Q6H PRN IV 06/19/17 04:15 07/19/17 04:14 Insulin Aspart (novoLOG ASPART) SLIDING SCALE If C... ACHS SC 06/19/17 06:30 07/19/17 06:59 Glucose (Glucose 40% Gel) 15-30 GRAMS 15 GRAMS... UD PRN PO 06/19/17 04:15 07/19/17 04:14 Glucose (Glucose Chew Tab) 4-8 Tablets 4 Tabl... UD PRN PO 06/19/17 04:15 07/19/17 04:14 Dextrose (Dextrose 50% 50ML Syringe) 25-50ML OF 50% DW IV FOR... UD PRN IV 06/19/17 04:15 07/19/17 04:14 Glucagon (Glucagon Inj) 1 mg UD PRN SQ 06/19/17 04:15 07/19/17 04:14 Sodium Chloride 1,000 ml @ 80 mls/hr [id number] IV 06/19/17 06:30 07/19/17 06:29 06/19/17 06:41 80 MLS/HR Miscellaneous (Iv Fluids Completed) 1 ea PRN PRN N/A 06/19/17 04:45 06/19/18 04:44 Aspirin (Ecotrin Tab) 81 mg QAM PO 06/19/17 09:00 07/19/17 08:59 Clopidogrel Bisulfate (plAVix TAB) 75 mg HS PO 06/19/17 21:00 07/19/17 20:59 Levothyroxine Sodium (Synthroid Tab) 50 mcg DAILYBB PO 06/19/17 06:30 07/19/17 06:29 Lisinopril (Zestril Tab) 2.5 mg QAM PO 06/19/17 09:00 07/19/17 08:59 Metoprolol Tartrate (Lopressor Tab) 25 mg QAM PO 06/19/17 09:00 07/19/17 08:59 Nortriptyline HCl (Pamelor Cap) 25 mg HS PO 06/19/17 21:00 07/19/17 20:59 Ranitidine HCl (zANTac TAB) 150 mg BID PO 06/19/17 09:00 07/19/17 08:59 Simvastatin (Zocor Tab) 20 mg HS PO 06/19/17 21:00 07/19/17 20:59 Terazosin HCl (Hytrin Cap) 4 mg HS PO 06/19/17 21:00 07/19/17 20:59 Gadobutrol (Gadavist) 10.5 mmol UD PRN IV 06/19/17 08:30 06/23/17 08:29 Review of Systems Constitutional: No fever or chills Eyes: No vision loss or diplopia ENT: No hearing loss or vertigo Cardiovascular: No chest pain or palpitations Respiratory: No coughing wheezing or shortness of breath Neurological: As per history of present illness A full 10 point review of systems was obtained from this patient with pertinent positives and negatives described in history of present illness and otherwise listed above. All remaining systems reviewed and are negative. Physical Exam Vital Signs (Past 24 Hrs): Date Time Temp Pulse Resp B/P (MAP) Pulse Ox O2 Delivery O2 Flow Rate FiO2 06/19/17 07:26 36.3 65 16 126/70 (88) 97 Room Air 06/19/17 06:31 36.7 64 18 136/70 95 Room Air 06/19/17 04:53 37.7 64 24 125/64 95 06/19/17 04:37 64 125/64 95 Room Air 06/19/17 02:39 60 112/64 95 Room Air 06/19/17 01:06 60 112/64 95 Room Air 06/18/17 23:21 61 24 112/60 93 Room Air 06/18/17 22:47 92 Room Air 06/18/17 22:36 37.7 64 20 123/65 93 Room Air 06/18/17 22:31 68 The patient is a well-developed elderly male. He is lying comfortably in bed. He is alert and oriented to person place and time. Remote memory intact. Recent memory slightly impaired, 2 out of 3 objects with delayed recall. Attention slightly diminished. Concentration slightly impaired some difficulty with spelling world backwards. Patient is able to name objects and repeat phrases. Patient exhibits a moderate degree of dysarthria. Vocabulary normal. Fund of knowledge pertaining to medical history seems limited. Visual campoverde full to confrontation. Visual acuity normal. Pupils equal round reactive to light and accommodation. There is some limitation with vertical gaze noted. Attempts at vertical gaze elicit slight disconjugate gaze. No nystagmus. Facial sensation intact. There is no facial droop or weakness. Hearing intact bilaterally. Palate elevates to midline. Shoulder shrug intact bilaterally. Tongue protrudes to midline. Sensation grossly intact to light touch, temperature, vibration, and proprioception for all 4 limbs. Deep tendon reflexes are intact and symmetrical for the arms and legs. Achilles tendon reflexes diminished bilaterally. Plantar responses downgoing bilaterally. There is no dysdiadochokinesia or dysmetria with finger to nose or heel to menjivar. I'm unable to adequately visualize the optic nerves and posterior segments with direct ophthalmoscopic examination due to small pupil size. Carotid pulses normal bilaterally, no bruits to auscultation. Gait and station cannot be tested. There is mild diffuse weakness. Muscle tone normal throughout. No atrophy. No abnormal movements appreciated. Laboratory Results Past 24 Hours: 06/18/17 22:33 Red Blood Count 4.55, Mean Corpuscular Volume 90.1, Mean Corpuscular Hemoglobin 30.5, Mean Corpuscular Hemoglobin Concent 33.9, Mean Platelet Volume 11.8, Neutrophils (%) (Auto) 54.3, Lymphocytes (%) (Auto) 31.8, Monocytes (%) (Auto) 10.7, Eosinophils (%) (Auto) 2.6, Basophils (%) (Auto) 0.4, Neutrophils # (Auto ) 7.12, Lymphocytes # (Auto) 4.17, Monocytes # (Auto) 1.40, Eosinophils # (Auto ) 0.34, Basophils # (Auto) 0.05 06/18/17 22:33 Test 06/18/17 22:25 06/18/17 22:33 06/18/17 23:00 06/19/17 07:34 Bedside Prothrombin Time INR 1.1 (0.9-1.1) White Blood Count 13.11 K/uL (4.8-10.8) Red Blood Count 4.55 M/uL (4.7-6.1) Hemoglobin 13.9 g/dL (14.0-18.0) Hematocrit 41.0 % (42-52) Mean Corpuscular Volume 90.1 fL (80-100) Mean Corpuscular Hemoglobin 30.5 pg (25-34) Mean Corpuscular Hemoglobin Concent 33.9 g/dl (32-36) Platelet Count 214 K/uL (130-400) Mean Platelet Volume 11.8 fL (7.4-10.4) Neutrophils (%) (Auto) 54.3 % Lymphocytes (%) (Auto) 31.8 % Monocytes (%) (Auto) 10.7 % Eosinophils (%) (Auto) 2.6 % Basophils (%) (Auto) 0.4 % Neutrophils # (Auto) 7.12 K/uL (1.4-6.5) Lymphocytes # (Auto) 4.17 K/uL (1.2-3.4) Monocytes # (Auto) 1.40 K/uL (0.11-0.59) Eosinophils # (Auto) 0.34 K/uL (0-0.5) Basophils # (Auto) 0.05 K/uL (0-0.2) RDW Standard Deviation 45.2 fL (36.4-46.3) RDW Coefficient of Variation 13.7 % (11.5-14.5) Immature Granulocyte % (Auto) 0.2 % Immature Granulocyte # (Auto) 0.03 K/uL (0.00-0.02) Prothrombin Time 10.8 SECONDS (9.0-12.0) Prothromb Time International Ratio 1.0 (0.9-1.1) Activated Partial Thromboplast Time 28.0 SECONDS (21.0-31.0) Partial Thromboplastin Ratio 1.1 Anion Gap 7.0 mmol/L (3-11) Est Creatinine Clear Calc Drug Dose 50.0 ml/min Estimated GFR () 51.0 Estimated GFR (Non- 44.0 BUN/Creatinine Ratio 9.2 (10-20) Calcium Level 8.2 mg/dl (8.5-10.1) Magnesium Level 1.8 mg/dl (1.8-2.4) Total Bilirubin 0.4 mg/dl (0.2-1) Direct Bilirubin 0.1 mg/dl (0-0.2) Aspartate Amino Transf (AST/SGOT) 18 U/L (15-37) Alanine Aminotransferase (ALT/SGPT) 23 U/L (12-78) Alkaline Phosphatase 59 U/L (45-117) Total Creatine Kinase 81 U/L (39-308) Creatine Kinase MB 0.7 ng/ml (0.5-3.6) Creatine Kinase MB Ratio 0.9 (0-3.0) Troponin I < 0.015 ng/ml (0-0.045) Total Protein 7.0 gm/dl (6.4-8.2) Albumin 2.8 gm/dl (3.4-5.0) Lipase 115 U/L (73-393) Thyroid Stimulating Hormone (TSH) 2.460 uIu/ml (0.300-4.500) Urine Color DK YELLOW Urine Appearance CLEAR (CLEAR) Urine pH 6.5 (4.5-7.5) Urine Specific [place] 1.023 (1.000-1.030) Urine Protein NEG (NEG) Urine Glucose (UA) NEG (NEG) Urine Ketones TRACE (NEG) Urine Occult Blood NEG (NEG) Urine Nitrite NEG (NEG) Urine Bilirubin NEG (NEG) Urine Urobilinogen NEG (NEG) Urine Leukocyte Esterase NEG (NEG) Urine WBC (Auto) 1-5 /hpf (0-5) Urine RBC (Auto) 0-4 /hpf (0-4) Urine Hyaline Casts (Auto) 0 /lpf (0-5) Urine Epithelial Cells (Auto) 5-10 /lpf (0-5) Urine Bacteria (Auto) NEG (NEG) Bedside Glucose 132 mg/dl (70-99) Impression This is an 86-year-old male with a history of neurodegenerative disease characterized by dysarthria, vertical gaze palsy, retropulsion, gait dysfunction , and mild dementia. I agree with the assessment of Dr. Kenney, his usual neurologist, of probable progressive supranuclear palsy. An atypical variant of parkinsonism is also possible. He has not tolerated a previous trial of levodopa , however. There is no evidence of acute or subacute infarct or other acute process on his recently completed brain MRI. I suspect his chronic neurodegenerative disease continues to decline. Plan Given this patient's considerable functional impairment he may be an appropriate candidate for inpatient rehabilitation. However, the extent to which this patient may realize durable functional gains with rehabilitation is uncertain in light of his chronic, progressive, neurodegenerative disease. intermediate placement may be another potential option. I do not have any further recommendations for testing or treatment. This patient may continue to follow with Dr. Kenney as an outpatient, his usual neurologist.
[2017-06-19] MEDS: LEVOTHYROXINE 50 MCG TAB PO SCH (10:45)
[2017-06-19] MEDS: LISINOPRIL 2.5 MG TAB PO SCH (10:45)
[2017-06-19] MEDS: RANITIDINE HCL 150 MG TAB PO SCH ×2 (10:45→21:13)
[2017-06-19] MEDS: ASPIRIN 81 MG ECTAB PO SCH (10:46)
[2017-06-19] MEDS: METOPROLOL TARTRATE 25 MG TAB PO SCH (10:46)
[2017-06-19] MEDS ORDERED: COUGH DROP (SUGAR FREE) LOZ 24 LOZ/1 BOX PO PRN (13:15)
[2017-06-19] MEDS ORDERED: COUGH DROP (SUGAR FREE) LOZ 24 LOZ/1 BOX PO ONE (13:45)
--- NOTE | 2017-06-19 14:41 | ECHOCARDIOGRAM REPORT ---
*NOTICE TO RECEIVING [employer] This information is strictly Confidential and protected under [place] law. [place] law prohibits you from making any further disclosure of this information unless further disclosure is expressly permitted by the written consent of the person to whom it pertains or is authorized by law. A general authorization for the release of medical or other information is not sufficient for this purpose. Hospital accepts no responsibility if the information is made available to any other person, INCLUDING THE PATIENT. Interpretation Summary * Name: FRANCOISE HOLT Study Date: 06/19/2017 08:36 AM BP: 125/64 mmHg * Patient Location: [facility] HR: 64 * : 1930 (M/d/yyyy) Gender: Male Height: 74 in * Age: 86 yrs Ethnicity: [place] Weight: 247 lb * Ordering Physician: Manish Stearns * Referring Physician: Self, Referred * Performed By: Handy Arnold RCS * * Reason For Study: Weakness, Altered Mental Status * BSA: 2.4 m2 * -- Conclusions -- * Left ventricular systolic function is normal. * No regional wall motion abnormalities noted. * Ejection Fraction = 55-60%. * There is mild concentric left ventricular hypertrophy. * Grade I diastolic dysfunction, (abnormal relaxation pattern). * There is mild tricuspid regurgitation. Procedure Details * A complete two-dimensional transthoracic echocardiogram was performed (2D, M-mode, Doppler and color flow Doppler). * The study was technically difficult. * There were technical limitations due to patient'spoor positioning * A contrast injection of Definity was performed to improve assessment of LV function. * Contrast was injected into an intravenous site in the left arm. * One vial of Definity ultrasound contrast was diluted in normal saline to a total volume of 10 ml. A total of '1' ml of solution was administered during imaging. * Lot # [id number] of Definity utilized for procedure. * Expiration date . * The attending nurse who injected the contrast agent was Arya Cancino RN. Left Ventricle * The left ventricle is grossly normal size. * There is mild concentric left ventricular hypertrophy. * Ejection Fraction = 55-60%. * Left ventricular systolic function is normal. * No regional wall motion abnormalities noted. Right Ventricle * The right ventricle is not well visualized. * The right ventricular systolic function is normal. Atria * The left atrium is mildly dilated. * The right atrium is mildly dilated. * There is no evidence of atrial septal defect, but resolution does not allow assessment for a patent foramen ovale. Mitral Valve * The mitral valve is grossly normal. * There is no mitral valve stenosis. * Significant mitral regurgitation is absent. Tricuspid Valve * The tricuspid valve is not well visualized, but is grossly normal. * There is no tricuspid stenosis. * There is mild tricuspid regurgitation. * Right ventricular systolic pressure is elevated at 30-40mmHg. Aortic Valve * The aortic valve is trileaflet. * The aortic valve opens well. * Aortic valve sclerosis mild, without significant aortic valvular stenosis. * Trace aortic regurgitation. Pulmonic Valve * The pulmonary valve is not well seen, but the Doppler examination is normal without significant regurgitation or stenosis. Great Vessels * Borderline aortic root dilatation. * The pulmonary is not well visualized. Pericardium/Pleural * There is no pericardial effusion. Great Vessels * IVC not well seen. Left Ventricular Diastolic Function * Grade I diastolic dysfunction, (abnormal relaxation pattern). MMode 2D Measurements and Calculations IVSd 1.1 cm IVSs 1.3 cm LVIDd 5.1 cm LVIDs 3.4 cm LVPWd 1.1 cm LVPWs 1.3 cm IVS/LVPW 0.96 FS 33.9 % EDV(Teich) 122.2 ml ESV(Teich) 45.9 ml EF(Teich) 62.5 % EDV(cubed) 130.4 ml ESV(cubed) 37.7 ml EF(cubed) 71.1 % % IVS thick 15.0 % % LVPW thick 13.3 % LV mass(C)d 215.1 grams LV mass(C)dI 90.5 grams/m\S\2 LV mass(C)s 139.4 grams LV mass(C)sI 58.6 grams/m\S\2 SV(Teich) 76.3 ml SI(Teich) 32.1 ml/m\S\2 SV(cubed) 92.7 ml SI(cubed) 39.0 ml/m\S\2 Ao root diam 4.0 cm Ao root area 12.3 cm\S\2 ACS 1.9 cm LA dimension 4.1 cm asc Aorta Diam 3.1 cm LA/Ao 1.0 EDV(MOD-sp4) 119.2 ml ESV(MOD-sp4) 43.5 ml EF(MOD-sp4) 63.5 % EDV(MOD-sp2) 104.4 ml ESV(MOD-sp2) 51.6 ml EF(MOD-sp2) 50.5 % SV(MOD-sp4) 75.7 ml SI(MOD-sp4) 31.9 ml/m\S\2 SV(MOD-sp2) 52.8 ml SI(MOD-sp2) 22.2 ml/m\S\2 Doppler Measurements and Calculations MV E max aimee 115.3 cm/sec MV A max aimee 107.4 cm/sec MV E/A 1.1 MV P1/2t max aimee 128.8 cm/sec MV P1/2t 99.4 msec MVA(P1/2t) 2.2 cm\S\2 MV dec slope 379.8 cm/sec\S\2 MV dec time 0.36 sec Ao V2 max 98.4 cm/sec Ao max PG 3.9 mmHg Ao max PG (full) 0.72 mmHg LV V1 max PG 3.2 mmHg LV V1 max 88.8 cm/sec PA V2 max 124.9 cm/sec PA max PG 6.9 mmHg PI max aimee 138.8 cm/sec PI max PG 7.7 mmHg PI dec slope 79.4 cm/sec\S\2 PI P1/2t 511.9 msec TR max aimee 230.8 cm/sec
--- NOTE | 2017-06-19 19:12 | Family Medicine Progress Note ---
Progress Note Date of Service Jun 19, 2017. Subjective Pt evaluation today including: conversation w/ patient, conversation w/ family , physical exam, chart review, lab review, review of studies Pain: Patient declines pain at this time PO Intake: nectar thick Voiding: no voiding problems Patient is quite fatigued. He reports sore throat and some productive cough Constitutional: + weakness, + fatigue, No fever, No chills, No sweats, No weight loss, No problem reported Eyes: + problem reported (alternating diplopia/monovision) ENT: + nasal symptoms, + sore throat, + trouble swallowing Respiratory: + cough, + sputum Cardiovascular: No chest pain, No orthopnea, No PND, No edema, No claudication, No palpitations, No problem reported Abdomen: No pain, No nausea, No vomiting, No diarrhea, No constipation, No GI bleeding, No problem reported Male : + incontinence Neurologic: + memory loss, + weakness, + balance problems All Other Systems: Reviewed and Negative Medications Current Inpatient Medications Medications (Trade) Dose Ordered Sig/Ezra Route Start Time Stop Time Status Last Admin Dose Admin Acetaminophen (Tylenol Tab) 650 mg Q4H PRN PO 06/19/17 04:15 07/19/17 04:14 06/19/17 14:00 650 MG Magnesium Hydroxide (Milk Of Magnesia Susp) 30 ml Q12H PRN PO 06/19/17 04:15 07/19/17 04:14 Ondansetron HCl (Zofran Inj) 4 mg Q6H PRN IV 06/19/17 04:15 07/19/17 04:14 Insulin Aspart (novoLOG ASPART) SLIDING SCALE If C... ACHS SC 06/19/17 06:30 07/19/17 06:59 Glucose (Glucose 40% Gel) 15-30 GRAMS 15 GRAMS... UD PRN PO 06/19/17 04:15 07/19/17 04:14 Glucose (Glucose Chew Tab) 4-8 Tablets 4 Tabl... UD PRN PO 06/19/17 04:15 07/19/17 04:14 Dextrose (Dextrose 50% 50ML Syringe) 25-50ML OF 50% DW IV FOR... UD PRN IV 06/19/17 04:15 07/19/17 04:14 Glucagon (Glucagon Inj) 1 mg UD PRN SQ 06/19/17 04:15 07/19/17 04:14 Sodium Chloride 1,000 ml @ 80 mls/hr [id number] IV 06/19/17 06:30 07/19/17 06:29 06/19/17 06:41 80 MLS/HR Miscellaneous (Iv Fluids Completed) 1 ea PRN PRN N/A 06/19/17 04:45 06/19/18 04:44 Aspirin (Ecotrin Tab) 81 mg QAM PO 06/19/17 09:00 07/19/17 08:59 06/19/17 10:46 81 MG Clopidogrel Bisulfate (plAVix TAB) 75 mg HS PO 06/19/17 21:00 07/19/17 20:59 Levothyroxine Sodium (Synthroid Tab) 50 mcg DAILYBB PO 06/19/17 06:30 07/19/17 06:29 06/19/17 10:45 50 MCG Lisinopril (Zestril Tab) 2.5 mg QAM PO 06/19/17 09:00 07/19/17 08:59 06/19/17 10:45 2.5 MG Metoprolol Tartrate (Lopressor Tab) 25 mg QAM PO 06/19/17 09:00 07/19/17 08:59 06/19/17 10:46 25 MG Nortriptyline HCl (Pamelor Cap) 25 mg HS PO 06/19/17 21:00 07/19/17 20:59 Ranitidine HCl (zANTac TAB) 150 mg BID PO 06/19/17 09:00 07/19/17 08:59 06/19/17 10:45 150 MG Simvastatin (Zocor Tab) 20 mg HS PO 06/19/17 21:00 07/19/17 20:59 Terazosin HCl (Hytrin Cap) 4 mg HS PO 06/19/17 21:00 07/19/17 20:59 Gadobutrol (Gadavist) 10.5 mmol UD PRN IV 06/19/17 08:30 06/23/17 08:29 Menthol (Nice Dana) 1 dana Q8H PRN PO 06/19/17 13:15 07/19/17 13:14 Objective Vital Signs Date Time Temp Pulse Resp B/P (MAP) Pulse Ox O2 Delivery O2 Flow Rate FiO2 1/9/18 15:27 36.8 57 20 123/72 (89) 94 06/19/17 12:00 Room Air 06/19/17 11:36 36.2 69 18 123/62 (82) 95 Room Air 109/61 (77) 06/19/17 10:44 36.3 61 18 138/72 (94) 95 Room Air 06/19/17 10:00 95 Room Air 06/19/17 10:00 Room Air 06/19/17 07:26 36.3 65 16 126/70 (88) 97 Room Air 06/19/17 06:31 36.7 64 18 136/70 95 Room Air 06/19/17 04:53 37.7 64 24 125/64 95 06/19/17 04:37 64 125/64 95 Room Air 06/19/17 02:39 60 112/64 95 Room Air 06/19/17 01:06 60 112/64 95 Room Air 06/18/17 23:21 61 24 112/60 93 Room Air 06/18/17 22:47 92 Room Air 06/18/17 22:36 37.7 64 20 123/65 93 Room Air 06/18/17 22:31 68 Physical Exam General Appearance: WD/WN, no apparent distress Eyes: normal inspection, + pertinent finding (restricted pupils; dolls eye gaze with occasional disconjugate gaze) ENT: + nasal congestion, + nasal drainage Neck: supple, no JVD Respiratory/Chest: chest non-tender, lungs clear, normal breath sounds, no respiratory distress, no accessory muscle use Cardiovascular: regular rate, rhythm, no edema, no gallop, no JVD, no murmur Abdomen: normal bowel sounds, non tender, soft Extremities: non-tender, no pedal edema, no calf tenderness, + pertinent finding (decreased LL reflexes bilaterally) Neurologic/Psychiatric: alert, oriented x 3, + motor weakness, + pertinent finding (flattened affect) Laboratory Results Last Resulted 06/18/17 22:33 Red Blood Count 4.55, Mean Corpuscular Volume 90.1, Mean Corpuscular Hemoglobin 30.5, Mean Corpuscular Hemoglobin Concent 33.9, Mean Platelet Volume 11.8, Neutrophils (%) (Auto) 54.3, Lymphocytes (%) (Auto) 31.8, Monocytes (%) (Auto) 10.7, Eosinophils (%) (Auto) 2.6, Basophils (%) (Auto) 0.4, Neutrophils # (Auto ) 7.12, Lymphocytes # (Auto) 4.17, Monocytes # (Auto) 1.40, Eosinophils # (Auto ) 0.34, Basophils # (Auto) 0.05 Last Resulted 06/18/17 22:33 Past 24 Hours Test 06/18/17 22:33 Range/Units Creatine Kinase MB 0.7 0.5-3.6 ng/ml Creatine Kinase MB Ratio 0.9 0-3.0 Prothromb Time International Ratio 1.0 0.9-1.1 Prothrombin Time 10.8 9.0-12.0 SECONDS Total Creatine Kinase 81 39-308 U/L Troponin I < 0.015 0-0.045 ng/ml Assessment and Plan Patient is an 86 year old male with a past medical history of progressive supranuclear palsy, stroke, hypertension, hyperlipidemia, and diabetes that presents after experiencing an episode of weakness and disorientation which resolved prior to arrival at hospital Generalized Weakness - Possibly related to progressive supranuclear palsy - CT Head: Senescent changes and remote infarct. There is no hemorrhage, mass effect, or evidence of acute territorial ischemia. - MRI Brain Combo showed no change from March 2017 - Carotid Doppler: 50-60% ICA stenosis - X-Ray lumbar spine and pelvis: negative - Neurology consult, appreciate recommendations: Agree with assessment of Dr. 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 Atypical variant of parkinsonism also possible. He has not tolerated a previous trial of levodopa. No evidence of acute or subacute infarct or other acute process on brain MRI. I suspect his chronic neurodegenerative disease continues to decline. Given considerable functional impairment he may be appropriate candidate for inpatient rehabilitation. Extent to which he may realize durable functional gains with rehab is uncertain in light of chronic progressive, neurodegenerative dz snf placement may be another potential option. Not further recommendations for testing or treatment, patient may continue to follow w Dr. Kenney as an outpatient - Echo: no regional wall abnormalities, mild TR, EF 55-60, mild concentric LVH - Discussed case with family; they are adamant that he not go to [facility], they would prefer he receive and they pay for intense in home care and would prefer that when the time comes in distant future he pass away at home. - PT/OT - check orthostatics to r/o that as contributing to symptoms. CAD - Resume home Aspirin and Plavix - Monitor on telemetry - Troponin negative trend Diabetes Mellitus - BSG currently well controlled with Metformin and Insulin at home - sliding scale insulin and hold other home insulins - HbA1c in December and Mar 2017=6.8% Hypertension - Lisinopril 2.5 and Lopressor 25 Hypothyroidism - Synthroid 50 Hyperlipidemia - Zocor 20 BPH - Hytrin 4 DVT Prophylaxis: SCDs Code: FullOn tele, possible dc to rehab tomorrow Resident Tracking Resident Involvement: Resident Care Provided Care Provided: Adult Hospital Medicine Reviewed: Pt Seen/Exam by Me History denies any complains Constitutional: denies: fever Respiratory: negative: short of breath Cardiovascular: denies chest pain General Appearance: no apparent distress Respiratory: lungs clear, no respiratory distress Cardiovascular: regular rate, rhythm Neurologic/Psychiatric: alert, oriented x 3, other (dysarthria, limited vocabulary, mask like face, no focal weakness. ) Skin Characteristics: warm/dry Assessment/Plan Resident Physician Supervision Note: I independently interviewed and examined the patient and verified the liao history and physical, reviewed labs and image studies, discussed the case with the resident Dr. Denis and agree with the findings and care plan.
[2017-06-19] MEDS: CLOPIDOGREL BISULFATE 75 MG TAB PO SCH (21:13)
[2017-06-19] MEDS: SIMVASTATIN 20 MG TAB PO SCH (21:13)
[2017-06-19] MEDS: NORTRIPTYLINE HCL 25 MG CAP PO SCH (21:13)
[2017-06-20] VITALS (7 sets, daily range): BP systolic 116–160; BP diastolic 69–82; PULSE 58–77; TEMP 36.3–36.9; O2SAT 92–97
[2017-06-20] MEDS: LEVOTHYROXINE 50 MCG TAB PO SCH (05:54)
[2017-06-20 06:54] LABS: HEMATOCRIT 40.1 % (42-52); HEMOGLOBIN 13.4 g/dL (14.0-18.0); MEAN CELL VOLUME 91.1 fL (80-100); MEAN CORPUSCULAR HEMOGLOBIN 30.5 pg (25-34); MEAN CORPUSCULAR HGB CONC 33.4 g/dl (32-36); MEAN PLATELET VOLUME 11.1 fL (7.4-10.4); PLATELET COUNT 184 K/uL (130-400); RED CELL DISTRIBUTION WIDTH CV 13.5 % (11.5-14.5); RED CELL DISTRIBUTION WIDTH SD 45.4 fL (36.4-46.3); WHITE BLOOD COUNT 11.07 K/uL (4.8-10.8)
[2017-06-20 07:28] LABS: CALCIUM 8.1 mg/dl (8.5-10.1); CREATININE 1.18 mg/dl (0.60-1.40); HEMOGLOBIN A1C 6.5 % (4.5-5.6); POTASSIUM 4.1 mmol/L (3.5-5.1)
[2017-06-20] MEDS: ASPIRIN 81 MG ECTAB PO SCH (08:25)
[2017-06-20] MEDS: LISINOPRIL 2.5 MG TAB PO SCH (08:27)
[2017-06-20] MEDS: SODIUM CHLORIDE 0.9% 1000ML 1,000 ML IV SCH (08:27)
[2017-06-20] MEDS: RANITIDINE HCL 150 MG TAB PO SCH ×2 (08:28→20:17)
[2017-06-20] MEDS: METOPROLOL TARTRATE 25 MG TAB PO SCH (08:28)
[2017-06-20] MEDS: INSULIN ASPART 100 UNITS/ML 3 ML PEN SC SCH ×4 (08:34→21:00)
[2017-06-20] MEDS: BOOST GLUCOSE CONTROL PO SCH (17:12)
[2017-06-20] MEDS ORDERED: NURSING VERBAL MED ORDER ONE (17:15)
[2017-06-20] MEDS: CLOPIDOGREL BISULFATE 75 MG TAB PO SCH (20:17)
[2017-06-20] MEDS: SIMVASTATIN 20 MG TAB PO SCH (20:17)
[2017-06-20] MEDS: NORTRIPTYLINE HCL 25 MG CAP PO SCH (20:17)
--- NOTE | 2017-06-20 23:04 | Family Medicine Progress Note ---
Progress Note Date of Service Jun 20, 2017. Subjective Pt evaluation today including: conversation w/ patient, conversation w/ family , physical exam, chart review, lab review Pain: no pain reported PO Intake: Tolerating well Voiding: no voiding problems Patient remains lethargic but per he is more like himself and is in better spirits. Has no complaints aside from sore throat Constitutional: + fatigue, No fever, No chills, No sweats, No weight loss, No weakness, No problem reported ENT: + sore throat, + trouble swallowing Respiratory: + sputum, No cough, No wheezing, No shortness of breath, No dyspnea on exertion, No dyspnea at rest, No hemoptysis, No problem reported Cardiovascular: No chest pain, No orthopnea, No PND, No edema, No claudication, No palpitations, No problem reported Abdomen: No pain, No nausea, No vomiting, No diarrhea, No constipation, No GI bleeding, No problem reported Neurologic: + see HPI, + weakness, + balance problems Endo: + fatigue All Other Systems: Reviewed and Negative Medications Current Inpatient Medications Medications (Trade) Dose Ordered Sig/Ezra Route Start Time Stop Time Status Last Admin Dose Admin Acetaminophen (Tylenol Tab) 650 mg Q4H PRN PO 06/19/17 04:15 07/19/17 04:14 06/19/17 14:00 650 MG Magnesium Hydroxide (Milk Of Magnesia Susp) 30 ml Q12H PRN PO 06/19/17 04:15 07/19/17 04:14 Ondansetron HCl (Zofran Inj) 4 mg Q6H PRN IV 06/19/17 04:15 07/19/17 04:14 Insulin Aspart (novoLOG ASPART) SLIDING SCALE If C... ACHS SC 06/19/17 06:30 07/19/17 06:59 06/20/17 17:11 10 UNITS Glucose (Glucose 40% Gel) 15-30 GRAMS 15 GRAMS... UD PRN PO 06/19/17 04:15 07/19/17 04:14 Glucose (Glucose Chew Tab) 4-8 Tablets 4 Tabl... UD PRN PO 06/19/17 04:15 07/19/17 04:14 Dextrose (Dextrose 50% 50ML Syringe) 25-50ML OF 50% DW IV FOR... UD PRN IV 06/19/17 04:15 07/19/17 04:14 Glucagon (Glucagon Inj) 1 mg UD PRN SQ 06/19/17 04:15 07/19/17 04:14 Miscellaneous (Iv Fluids Completed) 1 ea PRN PRN N/A 06/19/17 04:45 06/19/18 04:44 Aspirin (Ecotrin Tab) 81 mg QAM PO 06/19/17 09:00 07/19/17 08:59 06/20/17 08:25 81 MG Clopidogrel Bisulfate (plAVix TAB) 75 mg HS PO 06/19/17 21:00 07/19/17 20:59 06/20/17 20:17 75 MG Levothyroxine Sodium (Synthroid Tab) 50 mcg DAILYBB PO 06/19/17 06:30 07/19/17 06:29 06/20/17 05:54 50 MCG Lisinopril (Zestril Tab) 2.5 mg QAM PO 06/19/17 09:00 07/19/17 08:59 06/20/17 08:27 2.5 MG Metoprolol Tartrate (Lopressor Tab) 25 mg QAM PO 06/19/17 09:00 07/19/17 08:59 06/20/17 08:28 25 MG Nortriptyline HCl (Pamelor Cap) 25 mg HS PO 06/19/17 21:00 07/19/17 20:59 06/20/17 20:17 25 MG Ranitidine HCl (zANTac TAB) 150 mg BID PO 06/19/17 09:00 07/19/17 08:59 06/20/17 20:17 150 MG Simvastatin (Zocor Tab) 20 mg HS PO 06/19/17 21:00 07/19/17 20:59 06/20/17 20:17 20 MG Terazosin HCl (Hytrin Cap) 4 mg HS PO 06/19/17 21:00 07/19/17 20:59 06/20/17 20:18 4 MG Gadobutrol (Gadavist) 10.5 mmol UD PRN IV 06/19/17 08:30 06/23/17 08:29 Menthol (Nice Dana) 1 dana Q8H PRN PO 06/19/17 13:15 07/19/17 13:14 Enteral Nutritional Formula (Boost Glucose Control) 1 can BIDM PO 06/20/17 17:00 07/20/17 16:59 06/20/17 17:12 1 CAN Objective Vital Signs Date Time Temp Pulse Resp B/P (MAP) Pulse Ox O2 Delivery O2 Flow Rate FiO2 06/20/17 22:29 69 94 06/20/17 20:27 36.9 65 18 136/76 (96) 92 Room Air 06/20/17 20:00 Room Air 06/20/17 16:17 Room Air 06/20/17 15:58 36.7 62 20 147/75 (99) 97 Room Air 06/20/17 12:00 Room Air 06/20/17 11:23 36.8 77 20 134/73 (93) 95 06/20/17 08:00 Room Air 06/20/17 07:43 36.5 70 20 154/79 (104) 94 06/20/17 04:00 CPAP 06/20/17 03:54 36.3 68 18 116/82 (93) 97 BiPAP 06/20/17 00:03 36.8 58 18 160/69 (99) 96 CPAP 06/20/17 00:00 CPAP Physical Exam General Appearance: WD/WN, no apparent distress Eyes: normal inspection, + pertinent finding (poorly reactive to accomodation; dolls eye gaze) ENT: hearing grossly normal, pharynx normal (mild erythema), + nasal congestion Neck: supple, trachea midline Respiratory/Chest: chest non-tender, lungs clear, normal breath sounds, no respiratory distress, no accessory muscle use Cardiovascular: regular rate, rhythm, no edema, no gallop, no JVD, no murmur Abdomen: normal bowel sounds, non tender, soft Neurologic/Psychiatric: + EOM palsy (slight vertical gaze palsy, occasional dysconjugate gaze ), + motor weakness (of lower limbs), + pertinent finding ( reflexes diminished in lower limbs; oriented to self) Skin: no rash Laboratory Results Last Resulted 06/20/17 06:24 Last Resulted 06/20/17 06:24 Assessment and Plan Patient is an 86 year old male with a past medical history of progressive supranuclear palsy, stroke, hypertension, hyperlipidemia, and diabetes that presents after experiencing an episode of weakness and disorientation which resolved prior to arrival at hospital Generalized Weakness - Possibly related to progressive supranuclear palsy - CT Head: Senescent changes and remote infarct. There is no hemorrhage, mass effect, or evidence of acute territorial ischemia. - MRI Brain Combo showed no change from March 2017 - Carotid Doppler: 50-60% ICA stenosis - X-Ray lumbar spine and pelvis: negative - Neurology consult, appreciate recommendations: Agree with assessment of Dr. 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 Atypical variant of parkinsonism also possible. He has not tolerated a previous trial of levodopa. No evidence of acute or subacute infarct or other acute process on brain MRI. I suspect his chronic neurodegenerative disease continues to decline. Given considerable functional impairment he may be appropriate candidate for inpatient rehabilitation. Extent to which he may realize durable functional gains with rehab is uncertain in light of chronic progressive, neurodegenerative dz [facility] placement may be another potential option. Not further recommendations for testing or treatment, patient may continue to follow w Dr. Kenney as an outpatient - Echo: no regional wall abnormalities, mild TR, EF 55-60, mild concentric LVH - Discussed case with family; they are adamant that he not go to alf, they would prefer he receive and they pay for intense in home care and would prefer that when the time comes in distant future he pass away at home. - PT/OT - Positive orthostatics - discussed slowly getting out of sitting position. - d/emmanuel IV fluids discontinued today Throat soreness - normal exam. likely ? pnd/gerd. follow CAD - Resume home Aspirin and Plavix - Monitor on telemetry - Troponin negative trend Diabetes Mellitus - BSG currently well controlled with Metformin and Insulin at home - sliding scale insulin and hold other home insulins - HbA1c in December and Mar 2017=6.8% Hypertension - Lisinopril 2.5 and Lopressor 25 Hypothyroidism - Synthroid 50 Hyperlipidemia - Zocor 20 BPH - Hytrin 4 DVT Prophylaxis: SCDs Code: Full Dispo: On tele, possible dc to tomorrow Resident Tracking Resident Involvement: Resident Care Provided Care Provided: Adult Hospital Medicine Reviewed: Pt Seen/Exam by Me History c/o throat being sore on swallowing at bedside Constitutional: denies: fever Respiratory: negative: short of breath Cardiovascular: denies chest pain General Appearance: no apparent distress Ears, Nose, Throat: pharynx normal Respiratory: lungs clear, no respiratory distress Cardiovascular: regular rate, rhythm Neurologic/Psychiatric: alert, oriented x 3 Skin Characteristics: warm/dry Assessment/Plan Resident Physician Supervision Note: I independently interviewed and examined the patient and verified the liao history and physical, reviewed labs and image studies, discussed the case with the resident Dr. Denis and agree with the findings and care plan.
[2017-06-21] VITALS: BP 116/66; PULSE 69; TEMP 37.3; O2SAT 93
[2017-06-21 04:00] VITALS: BP 127/74; PULSE 74; TEMP 37; O2SAT 91
[2017-06-21] MEDS: LEVOTHYROXINE 50 MCG TAB PO SCH (06:00)
[2017-06-21 07:52] VITALS: BP 127/71; PULSE 78; TEMP 37.1; O2SAT 94
[2017-06-21] MEDS: RANITIDINE HCL 150 MG TAB PO SCH (08:23)
[2017-06-21] MEDS: ASPIRIN 81 MG ECTAB PO SCH (08:23)
[2017-06-21] MEDS: METOPROLOL TARTRATE 25 MG TAB PO SCH (08:23)
[2017-06-21] MEDS: LISINOPRIL 2.5 MG TAB PO SCH (08:24)
[2017-06-21] MEDS: BOOST GLUCOSE CONTROL PO SCH (08:24)
[2017-06-21 08:46] LABS: BASO % 0.5 %; BASO ABS # 0.06 K/uL (0-0.2); EOS % 2.6 %; HEMATOCRIT 41.9 % (42-52); HEMOGLOBIN 14.1 g/dL (14.0-18.0); IG# 0.03 K/uL (0.00-0.02); LYMPH % 29.8 %; LYMPH ABS # 3.45 K/uL (1.2-3.4); MEAN CELL VOLUME 90.1 fL (80-100); MEAN CORPUSCULAR HEMOGLOBIN 30.3 pg (25-34); MEAN CORPUSCULAR HGB CONC 33.7 g/dl (32-36); MEAN PLATELET VOLUME 11.3 fL (7.4-10.4); MONO % 9.4 %; MONO ABS # 1.09 K/uL (0.11-0.59); NEUT % 57.4 %; NEUT ABS # 6.66 K/uL (1.4-6.5); PLATELET COUNT 191 K/uL (130-400); RED CELL DISTRIBUTION WIDTH CV 13.4 % (11.5-14.5); RED CELL DISTRIBUTION WIDTH SD 43.9 fL (36.4-46.3); WHITE BLOOD COUNT 11.59 K/uL (4.8-10.8)
[2017-06-21] MEDS: INSULIN ASPART 100 UNITS/ML 3 ML PEN SC SCH ×2 (08:46→13:16)
[2017-06-21 09:18] LABS: CALCIUM 8.5 mg/dl (8.5-10.1); CREATININE 1.08 mg/dl (0.60-1.40); POTASSIUM 4.1 mmol/L (3.5-5.1)
[2017-06-21] MEDS ORDERED: ACETAMINOPHEN 325 MG TAB PO STA (10:53)
[2017-06-21] MEDS ORDERED: NYSTATIN SUSP 500,000 U/5 ML UDC PO STA (10:53)
[2017-06-21] MEDS ORDERED: NURSING VERBAL MED ORDER ONE (11:00)
[2017-06-21] MEDS ORDERED: CHLORASEPTIC 1.4% SOLN 180 ML BTL MT PRN (11:15)
[2017-06-21 11:53] VITALS: BP 115/75; PULSE 58; TEMP 36.3; O2SAT 95
[2017-06-21] MEDS ORDERED: NYSTATIN SUSP 500,000 U/5 ML UDC PO SCH (13:00)
[2017-06-21] MEDS ORDERED: NYSS5 PO (14:03)
--- NOTE | 2017-06-21 14:27 | Discharge Instructions ---
Discharge Instructions Date of Service Jun 21, 2017. Admission Reason for Admission: Generalized Weakness Discharge Discharge Diagnosis / Problem: Progressive Supranuclear palsy Discharge Goals Goal(s): Decrease discomfort, Improve function, Learn about illness Activity Recommendations Activity Limitations: per Instructions/Follow-up section . Instructions / Follow-Up Instructions / Follow-Up Patient is an 86 year old male with a past medical history of progressive supranuclear palsy, stroke, hypertension, hyperlipidemia, and diabetes that presents after experiencing an episode of weakness and disorientation which resolved prior to arrival at hospital Generalized Weakness - Possibly related to progressive supranuclear palsy - CT Head: Senescent changes and remote infarct. There is no hemorrhage, mass effect, or evidence of acute territorial ischemia. - MRI Brain Combo showed no change from March 2017 - Carotid Doppler: 50-60% ICA stenosis - X-Ray lumbar spine and pelvis: negative - Neurology consult, appreciate recommendations: Agree with assessment of Dr. 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 Atypical variant of parkinsonism also possible. He has not tolerated a previous trial of levodopa. No evidence of acute or subacute infarct or other acute process on brain MRI. I suspect his chronic neurodegenerative disease continues to decline. Given considerable functional impairment he may be appropriate candidate for inpatient rehabilitation. Extent to which he may realize durable functional gains with rehab is uncertain in light of chronic progressive, neurodegenerative dz custodial placement may be another potential option. Not further recommendations for testing or treatment, patient may continue to follow w Dr. Kenney as an outpatient - Echo: no regional wall abnormalities, mild TR, EF 55-60, mild concentric LVH - Discussed case with family; they are adamant that he not go to [facility], they would prefer he receive and they pay for intense in home care and would prefer that when the time comes in distant future he spends his last days at home. - PT/OT recommend inpatient rehab - Positive orthostatics - discussed slowly getting out of sitting position. Throat soreness - normal exam. likely ?pnd/gerd. - Chlorseptic spray, lozenges, nystatin CAD - Resume home Aspirin and Plavix - Troponin negative trend Diabetes Mellitus - BSG currently well controlled with Metformin and Insulin at home - HbA1c in December and Mar 2017=6.8% Hypertension - Lisinopril 2.5 and Lopressor 25 Hypothyroidism - Synthroid 50 Hyperlipidemia - Zocor 20 BPH - Hytrin 4 Current Hospital Diet Patient's current hospital diet: Diabetes Type 2 Diet Discharge Diet Recommended Diet: Diabetes Type 2 Diet Liquid Consistency: Berkley Thick Pending Studies Studies pending at discharge: no Laboratory Results Hemoglobin A1c Test 06/20/17 06:24 Range/Units Estimated Average Glucose 140 mg/dl Hemoglobin A1c 6.5 H 4.5-5.6 % Medical Emergencies . Who to Call and When: Medical Emergencies: If at any time you feel your situation is an emergency, please call 911 immediately. . Non-Emergent Contact Non-Emergency issues call your: Primary Care Provider . . "Provider Documentation" section prepared by Agustina Denis. . VTE Core Measure Inpt VTE Proph given/why not?: SCD's
[2017-06-21 15:06] VITALS: BP 115/75; PULSE 58; TEMP 36.3; O2SAT 95
--- NOTE | 2017-06-21 22:10 | Discharge Summary ---
Discharge Summary Date of Service Jun 21, 2017. Discharge Summary Admission Date: Jun 19, 2017 at 04:19 Discharge Date: Jun 21, 2017 Discharge Disposition: Rehab Principal Diagnosis: Progressive supranuclear palsy Problems/Secondary Diagnoses: HTN, hyperlipidemia, CAD, diabetes, BPH, hypothyroidism Immunizations: Have You Had Influenza Vaccine: Unknown History of Tetanus Vaccine?: Unknown History of Pneumococcal: Unknown History of Hepatitis B Vaccine: Unknown Consultations: Neurology Medication Reconciliation New Medications: Nystatin (Nystatin) 5 Ml Susp 10 ML PO QID for 30 Days Continued Medications: Ascorbic Acid (Vitamin C) 1 Pow Pow 3.5 GM PO QAM MIX 3.5 GRAMS WITH 2 OUUNCES OF WATER AND TAKE DAILY Aspirin (Aspirin Ec) 81 Mg Tab 81 MG PO QAM Clopidogrel Bisulfate (Plavix) 75 Mg Tab 75 MG PO HS, TAB Glipizide (Glipizide) 10 Mg Tab 15 MG PO QAM Insulin (Novolin R) Inj UNITS SC UD, BTL COVERAGE DIRECTED BY SLIDING SCALE FOR BSG GREATER THAN 150 TAKE 2 units Insulin Nph (Novolin-N) Susp 30 UNITS SC BID, BTL Levothyroxine Sodium (Synthroid) 50 Mcg Tab 50 MCG PO QAM Lisinopril (Zestril) 5 Mg Tab 2.5 MG PO QAM, TAB Metoprolol Tartrate (Lopressor) (Lopressor) 25 Mg Tab 25 MG PO QAM, TAB Nortriptyline HCl (Nortriptyline HCl) 25 Mg Cap 25 MG PO HS Ranitidine Hcl (Zantac) 150 Mg Tab 150 MG PO BID, TAB TAKE THIS MEDICATION EVERY MORNING AND WITH EVENING MEAL. Simvastatin (Zocor) 40 Mg Tab 20 MG PO HS, TAB Terazosin Hcl (Hytrin) 2 Mg Cap 4 MG PO HS, CAP [B Complex] () 3.5 GM PO QAM MIX 3.5 GRAMS OF B COMPLEX POWDER WITH 2 OUNCES OF WATER AND TAKE DAILY [Vitamin D & K] () 3.5 GM PO QAM MIX 3.5 GM OF VITAMIN D & K POWDER WITH 2 OUNCES OF WATER AND TAKE DAILY [Vitamins] () POWD 1 DOSE PO QAM MIX 3.5 GRAMS WITH 2 OUNCES OF WATER PER 3.5 GRAMS AND DRINK DAILY. VITAMIN B COMPLEX VITAMIN C VITAMIN D and K CALCIUM OPC MULTIVITAMIN Discharge Exam ROS Constitutional: + fatigue, No fever, No chills, No sweats, No weight loss, No weakness, No problem reported ENT: + sore throat, + trouble swallowing Respiratory: + sputum, No cough, No wheezing, No shortness of breath, No dyspnea on exertion, No dyspnea at rest, No hemoptysis, No problem reported Cardiovascular: No chest pain, No orthopnea, No PND, No edema, No claudication, No palpitations, No problem reported Abdomen: No pain, No nausea, No vomiting, No diarrhea, No constipation, No GI bleeding, No problem reported Neurologic: + weakness, + balance problems Endo: + fatigue All Other Systems: Reviewed and Negative PE General Appearance: WD/WN, no apparent distress Eyes: normal inspection, + pertinent finding (poorly reactive to accomodation; dolls eye gaze) ENT: hearing grossly normal, pharynx normal (mild erythema), + nasal congestion Neck: supple, trachea midline Respiratory/Chest: chest non-tender, lungs clear, normal breath sounds, no respiratory distress, no accessory muscle use Cardiovascular: regular rate, rhythm, no edema, no gallop, no JVD, no murmur Abdomen: normal bowel sounds, non tender, soft Neurologic/Psychiatric: + EOM palsy (slight vertical gaze palsy, occasional dysconjugate gaze ), + motor weakness (of lower limbs), + pertinent finding ( reflexes diminished in lower limbs; oriented to self) Skin: no rash Hospital Course Patient is an 86 year old male with a past medical history of progressive supranuclear palsy, stroke, hypertension, hyperlipidemia, and diabetes that presents after experiencing an episode of weakness and disorientation which resolved prior to arrival at hospital Generalized Weakness - Possibly related to progressive supranuclear palsy - CT Head: Senescent changes and remote infarct. There is no hemorrhage, mass effect, or evidence of acute territorial ischemia. - MRI Brain Combo showed no change from March 2017 - Carotid Doppler: 50-60% ICA stenosis - X-Ray lumbar spine and pelvis: negative - Neurology consult, appreciate recommendations: Agree with assessment of Dr. 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 Atypical variant of parkinsonism also possible. He has not tolerated a previous trial of levodopa. No evidence of acute or subacute infarct or other acute process on brain MRI. I suspect his chronic neurodegenerative disease continues to decline. Given considerable functional impairment he may be appropriate candidate for inpatient rehabilitation. Extent to which he may realize durable functional gains with rehab is uncertain in light of chronic progressive, neurodegenerative dz assisted placement may be another potential option. Not further recommendations for testing or treatment, patient may continue to follow w Dr. Kenney as an outpatient - Echo: no regional wall abnormalities, mild TR, EF 55-60, mild concentric LVH - Discussed case with family; they are adamant that he not go to residential, they would prefer he receive and they pay for intense in home care and would prefer that when the time comes in distant future he spends his last days at home. - Positive orthostatics - discussed slowly getting out of sitting position. Throat soreness - normal exam. likely ?pnd/gerd/thrush. - Chlorseptic spray, lozenges, nystatin CAD - Resume home Aspirin and Plavix - Troponin negative trend Diabetes Mellitus - BSG currently well controlled with Metformin and Insulin at home - HbA1c in December and Mar 2017=6.8% Hypertension - Lisinopril 2.5 and Lopressor 25 Hypothyroidism - Synthroid 50 Hyperlipidemia - Zocor 20 BPH - Hytrin 4 Total Time Spent: Greater than 30 minutes This includes examination of the patient, discharge planning, medication reconciliation, and communication with other providers. Discharge Instructions Please refer to the electronic Patient Visit Report (Discharge Instructions) for additional information. Additional Copies To Lorne Garrett D.O. Resident Tracking Resident Involvement: Resident Care Provided Care Provided: Adult Hospital Medicine Reviewed: Pt Seen/Exam by Me History still having throat discomfort. had difficulty swallowing thickened boost Constitutional: denies: fever Respiratory: negative: short of breath Cardiovascular: denies chest pain Gastrointestinal/Abdominal: negative: abdominal pain General Appearance: no apparent distress Respiratory: lungs clear, no respiratory distress Cardiovascular: regular rate, rhythm Neurologic/Psychiatric: alert, oriented x 3 Skin Characteristics: warm/dry Assessment/Plan Resident Physician Supervision Note: I independently interviewed and examined the patient and verified the liao history and physical, reviewed labs and image studies, discussed the case with the resident Dr. Denis and agree with the findings and care plan. Time spent in discharge 40 min
== END 2017-06-21 16:00 ==
LOC: C.EDB 22:13 → C.MED 06-19 04:19 → ENRESERV 06-19 04:38
PROVIDERS: ADMIT Student in an Organized Health Care Education/Training Program; ATTEND Family Medicine
DX: G23.1 Progressive supranuclear ophthalmoplegia [Steele-Richardson-Olszewski] (principal); E11.9 Type 2 diabetes mellitus without complications; I10 Essential (primary) hypertension; E78.5 Hyperlipidemia, unspecified; I25.10 Atherosclerotic heart disease of native coronary artery without angina pectoris; E03.9 Hypothyroidism, unspecified; N40.0 Benign prostatic hyperplasia without lower urinary tract symptoms; Z79.82 Long term (current) use of aspirin; Z79.4 Long term (current) use of insulin; Z79.899 Other long term (current) drug therapy

== ENCOUNTER → 2017-06-29 | Outpatient (CLI) | payer OTHER ==
[~2017-06-29] MED LIST changes: +NYSS5 PO
--- NOTE | 2017-06-29 12:29 | DIAGNOSTIC IMAGING REPORT ---
VIDEO SWALLOW HISTORY: Stroke. Difficulty swallowing. Weakness. TECHNIQUE: Video fluoroscopic evaluation of swallowing was performed in the AP and lateral projections by the speech pathology staff. The patient is fed nectar-thick and thin liquid barium, a barium coated wafer, and barium pudding. FLUOROSCOPY TIME: 2.7 minutes. NUMBER OF FLUOROSCOPY IMAGES: 0 COMPARISON STUDY: None. FINDINGS: With swallowing thin liquid barium with a bolus hold, there was silent aspiration. When performing a single swallow, there was silent aspiration. When swallowing nectar thick liquids there is no evidence for aspiration. When swallowing pudding there is no evidence for aspiration. When swallowing nectar thick liquids, there is retention with retrograde flow but no evidence of aspiration. IMPRESSION: 1. Aspiration of thin liquids. 2. Please see the speech pathologist report for detailed findings and recommendations. Electronically signed by: Akash Marsh M.D. 06/29/2017 12:28 PM Dictated Date/Time: 06/29/2017 12:27 PM
--- NOTE | 2017-06-29 15:19 | SWALLOWING EVALUATION ---
HISTORY: This 86 year old man was referred to [facility] for a Video Fluoroscopic Swallow Study (VFSS) in order to rule out aspiration, and identify the safest consistencies for optimal oral intake. The patient has a previous history of dysphagia due to CVA. He is currently receiving RELOCATION MANAGER services in acute rehab ([facility]). PMH is significant for Progressive Supra Nuclear palsy, CVA in 2007, DM, falls, and limited vision. Current diet is pureed, and nectar thick liquids. Spouse is questioning need for nectar thick liquids. She also reports the patient has had odynophagia and is being treated for thrush. Patient had a previous VFSS on 08/25/15, which did not find any evidence of aspiration, but did note esophageal dysfunction. A regular "slippery" diet and thin liquids was recommended. PROCEDURE: The patient was seen in the Radiology Department of [facility] for the VFSS. Cursory examination of the oral cavity revealed upper and lower dentures. Movement of the articulators was impaired. ROM was wnl however strength was reduced and mild dysarthria was noted. Low volume of speech also evidenced. The patient was positioned upright in a high back wheelchair for the procedure and was viewed in both the Anterior-Posterior (A-P) and Lateral planes. Volitional phonation exercises completed in the A-P plane revealed bilateral vocal fold movement and vocal intensity was mildly low. In the lateral plane, the patient was given the following boluses: 1 tsp. thin liquid barium x 2, single swallow thin liquid barium self-presented from a cup, 1 tsp. nectar-thick liquid barium, single swallow nectar-thick liquid barium self-presented from a cup, 1 tsp. barium pudding, and 1 club cracker coated in barium pudding. The patient was then repositioned into the A-P plane and given the following boluses: 1 tsp. nectar thick barium and 1 tsp. barium pudding. RESULTS: Oral Stage: Lip closure was adequate. The patient was able to maintain a cohesive liquid bolus upon command without any escape. Mastication and lingual motion for bolus transport was slowed. There was retention along the tongue and palate after the initial swallow. The initiation of the pharyngeal swallow was delayed and triggered when the bolus head reached the pyriforms. Pharyngeal Stage: Soft palate elevation was complete. Laryngeal elevation revealed partial superior movement of the thyroid cartilage and partial approximation of the arytenoids to the epiglottic base. Anterior hyoid excursion was partially reduced. Epiglottic deflection was complete. Laryngeal vestibular closure was incomplete, with a narrow column of contrast located in the vestibule at the height of the swallow. The pharyngeal stripping wave was present yet diminished. Pharyngeal contraction was complete. There was partial distention and duration to the opening of the pharyngoesophageal segment (PES). Tongue base retraction was reduced, with a narrow column of contrast located between the tongue base and pharyngeal wall during the swallow. There was mild retention located in the valleculae after the swallow. There was evidence of laryngeal penetration and SILENT aspiration of thin liquids. Patient was provided with verbal cues to complete a hard cough and throat clear. Despite his best efforts, cough and throat clear were very weak and ineffective at clearing any of the aspirated liquids. No other aspiration identified for the remainder of the study. Aspiration is attributed to delayed swallow initiation, reduced hyolaryngeal elevation, and incomplete vestibular closure. Esophageal Stage: There was retention located throughout the esophagus, with retrograde flow below the PES. A liquid wash did not effectively clear the retention. SUMMARY/RECOMMENDATIONS: The patient presents with moderate juan-pharyngeal dysphagia. He also presents with signs and symptoms of esophageal dysfunction. The following is recommended: 1. Dental soft diet, slippery, NECTAR thick liquids. Avoid foods that are dry, thick, pasty, doughy. Use condiments such as sauce/gravy to assist in keeping foods moist. 2. Aspiration and GERD precautions. No straws. Fully upright for meals and for 30 minutes after meals. Do not lay flat, elevate head of the bed to at least 30 degrees at all time, to include while sleeping. 3. Small frequent meals. Frequent rest breaks. Slow rate. 4. Follow up RELOCATION MANAGER services at [facility] for carryover of diet, guadalupe swallow strategies, and further education as needed with family. Results and recommendations were discussed with the patient and his spouse immediately following the study with verbal understanding. Spouse was also very aware of his esophageal difficulties. A written summary of the results was provided to the patient on a Video Swallow Study worksheet for return to [facility] as well. Thank you for referral of this patient. Please contact me at if any additional information is needed.
== END | disposition home or self-care (01) ==
LOC: C.RAD 11:08
PROVIDERS: ATTEND Registered Nurse
DX: Z86.73 Personal history of transient ischemic attack (TIA), and cerebral infarction without residual deficits (principal); R53.1 Weakness; Y84.4 Aspiration of fluid as the cause of abnormal reaction of the patient, or of later complication, without mention of misadventure at the time of the procedure

== ENCOUNTER 2019-05-11 23:25 | Inpatient (IN) ==
[2019-05-12 00:05] LABS: Basophils # (auto) 0.04 K/uL (0-0.2); Basophils % (auto) 0.2 %; Eosinophils # (auto) 0.02 K/uL (0-0.5); Eosinophils % (auto) 0.1 %; Hematocrit (blood only) 39.1 % (42-52); Hemoglobin 13.1 g/dL (14.0-18.0); Immature Granulocytes # (auto) 0.11 K/uL (0.00-0.02); Immature Granulocytes % (auto) 0.5 %; Lymphocytes # (auto) 3.59 K/uL (1.2-3.4); Lymphocytes % (auto) 16.3 %; Mean Corpuscular Hemoglobin 30.7 pg (25-34); Mean Corpuscular Hgb Conc 33.5 g/dL (32-36); Mean Corpuscular Volume 91.6 fL (80-100); Mean Platelet Volume 12.6 fL (7.4-10.4); Monocytes # (auto) 1.85 K/uL (0.11-0.59); Monocytes % (auto) 8.4 %; Neutrophils # (auto) 16.45 K/uL (1.4-6.5); Neutrophils % (auto) 74.5 %; Platelet Count 141 K/uL (130-400); RDW Coefficient of Variation 13.2 % (11.5-14.5); RDW Standard Deviation 44.2 fL (36.4-46.3); Red Blood Count 4.27 M/uL (4.7-6.1); White Blood Count 22.06 K/uL (4.8-10.8)
[2019-05-12 00:10] LABS: Appearance Urine Cloudy (Clear); Bacteria Urine Automated 4+ (Negative); Blood Urine 3+ (Negative); Color Urine Dark Yellow; Glucose Urine UA Negative (Negative); Ketones Urine 1+ (Negative); Leukocyte Esterase Urine 2+ (Negative); Nitrite Urine Negative (Negative); Protein Urine 2+ (Negative); Specific Gravity Urine 1.027 (1.000-1.030); Urobilinogen Urine Negative (Negative); WBC Urine Automated >30 /hpf (0-5); pH Urine 5.5 (4.5-7.5)
[2019-05-12] MEDS ORDERED: SODIUM CHLORIDE 0.9% 500 ML IV ONE (00:12)
[2019-05-12] MEDS ORDERED: ACETAMINOPHEN 500 MG TAB PO STA (00:13)
[2019-05-12 00:16] LABS: INR 1.2 (0.9-1.1); Partial Thromboplastin Ratio 1.2; Partial Thromboplastin Time 31.9 Seconds (21.0-31.0); Prothrombin Time 12.4 Seconds (9.0-12.0)
[2019-05-12 00:19] LABS: Bilirubin Urine Negative (Negative); Ictotest Urine Negative (Negative)
[2019-05-12 00:25] LABS: Albumin Globulin Ratio 0.6 (0.9-2); Albumin Level 2.4 gm/dl (3.4-5.0); Bilirubin,Total 0.8 mg/dl (0.2-1); Calcium 8.2 mg/dl (8.5-10.1); Creatinine Clr Calc Pharmacy 49.2 ml/min; Est GFR (African American) 60.8; Est GFR (Non-African American) 52.5; Potassium 3.8 mmol/L (3.5-5.1); Total Protein 6.4 gm/dl (6.4-8.2)
[2019-05-12] MEDS ORDERED: DAPTOmycin 500 MG in SYRINGE 0 ML IV STA (00:28)
[2019-05-12] MEDS ORDERED: IMIPENEM/CILASTATIN SODIUM 500 MG in DEXTROSE 5% 100 ML IV STA (00:28)
[2019-05-12] MEDS ORDERED: SODIUM CHLORIDE 0.9% 500 ML IV SCH (01:15)
[2019-05-12] MEDS ORDERED: NSS + 20MEQ KCL 20 MEQ/1,000 ML BAG IV SCH (01:45)
[2019-05-12] MEDS: ALBUMIN 25% 50 ML IV SCH ×2 (02:21→03:08)
[2019-05-12] MEDS ORDERED: PIPERACILL/TAZOBAC CONSULT ACTIVE PRN (03:04)
[2019-05-12] MEDS ORDERED: DEXTROSE 50% 50 ML SYRINGE IV PRN (03:04)
[2019-05-12] MEDS ORDERED: GLUCAGON FOR INJ 1 MG VIAL SQ PRN (03:04)
[2019-05-12] MEDS ORDERED: CARBOHYDRATES FOR HYPOGLYCEMIA PO PRN (03:04)
[2019-05-12] MEDS ORDERED: GLUCOSE 40% GEL 15 GM TUBE PO PRN (03:04)
[2019-05-12] MEDS ORDERED: ONDANSETRON INJ 2 MG/ML 2 ML VIAL IV PRN (03:04)
[2019-05-12] MEDS ORDERED: GLUCOSE 10 TABS/TUBE PO PRN (03:04)
--- NOTE | 2019-05-12 03:50 | History & Physical Report ---
Date of Service May 12, 2019 Assessment & Plan (1) Sepsis due to urinary tract infection: Placed on normal saline plus KCl 20 mEq at 200 mL's per hour x1 L, then 100 mils per hour. Given daptomycin IV and Primaxin IV in the ED. Placed on Zosyn 4.5 g IV every 8 hours. Follow urine culture and sensitivities. 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 Patient's med rec does not have any specific medications. He does receive home physical therapy, visiting nurses and other care, along with family care. Patient would likely benefit from having IV fluids periodically in the outpatient setting, as his family reports his oral intake is very diminished. Present on Admission?: Yes (3) Aspiration of food: Patient is mouth breathing at this time, and making his use membranes even skin drier than usual. Patient will remain n.p.o. to adequately rehydrated. He is on honey thickened liquids at home. Present on Admission?: Yes (4) CAD (coronary artery disease), [place] coronary artery: Hold aspirin 81 mg every morning and clopidogrel 75 mg at bedtime, lisinopril 2.5 mg daily and metoprolol tartrate 12.5 mg p.o. twice daily, until able to take p.o. Present on Admission?: Yes (5) Diabetes: Hold Humulin N 30 units subcu daily, and regular insulin sliding scale. Placed on Accu-Cheks AC and at bedtime/every 6 hours with NovoLog coverage per scale Patient will be n.p.o. until clinical condition improves. Present on Admission?: Yes (6) GERD (gastroesophageal reflux disease): Hold oral ranitidine. Place on famotidine 20 mg IV every 12 hours Present on Admission?: Yes (7) Hyperlipidemia: Hold simvastatin 40 mg p.o. at bedtime until taking p.o. Present on Admission?: Yes (8) Hypothyroid: Hold levothyroxine 75 mcg every morning until taking p.o. Present on Admission?: Yes History of Present Illness Chief Complaint: The patient is brought to the emergency department due to family concerns regarding progressively worsening generalized weakness over the past 2 weeks with inability ambulate with walker, and overall decline in functioning. Primary Care Provider: Joselito Suarez MD The patient is an 88-year-old male with a past medical history including Parkinson's, hypothyroidism, hypertension, GERD, BPH, hyperlipidemia, diabetes mellitus and progressive supranuclear palsy, who presents to the emergency department from home, where he has home care several days a week, and physical therapy 3 times per week, along with family care. He was noted by family to be gradually less of able to walk with his walker over the past couple weeks, and in general not as interactive as previously. He has a known history of dysphagia associated with Parkinson's, and has been on honey thickened liquids. Allergies Allergy/AdvReac Type Severity Reaction Status Date / Time No Known Allergies Allergy Verified 05/12/19 00:17 Home Medications Home Medications Medication Instructions Recorded Confirmed Type aspirin 81 mg PO QAM 03/18/18 05/12/19 History cholecalciferol (vitamin D3) 4,000 unit PO QAM 03/18/18 05/12/19 History [Vitamin D3] clopidogrel 75 mg PO HS 03/18/18 05/12/19 History levothyroxine 75 mcg PO QAM 03/18/18 05/12/19 History lisinopril 2.5 mg PO QAM 03/18/18 05/12/19 History multivitamin 1 tab PO QAM 03/18/18 05/12/19 History ranitidine HCl 150 mg PO BIDM 03/18/18 05/12/19 History terazosin 4 mg PO HS 03/18/18 05/12/19 History simvastatin [Zocor] 40 mg PO HS 04/29/18 05/12/19 History calcium citrate 250 mg tablet 250 mg PO DAILY tab 01/08/19 05/12/19 History metoprolol tartrate 25 mg tablet 12.5 mg PO BID tab 01/08/19 05/12/19 History polyethylene glycol 3350 17 See Rx Instructions .ROUTE 01/08/19 05/12/19 History gram/dose oral powder .COMPLEX gm insulin regular human 100 regular 1 sliding scale dose SQ 01/14/19 05/12/19 Rx human 100 unit/mL injection USEASDIRECTD #10 ml solution insulin NPH isoph U-100 human 100 30 unit SUBCUT .COMPLEX 04/24/19 05/12/19 History human 100 unit/mL subcutaneous suspension vitamin B complex 1 tab PO DAILY 05/12/19 05/12/19 History Past Med/Surg History Medical History (Updated 05/12/19 @ 03:42 by Trey Story MD) CAD (coronary artery disease), [place] coronary artery Dementia (Chronic) Diabetes (Chronic) GERD (gastroesophageal reflux disease) (Chronic) HTN (hypertension), benign Hyperlipidemia (Chronic) Hypothyroid (Chronic) Parkinson disease Progressive supranuclear palsy Stroke (Resolved) UTI (urinary tract infection) Surgical History S/P CABG (coronary artery bypass graft) S/P cholecystectomy Social History Preferred Language: Spanish Communication Ability: Effective Top Installer Required: No Beliefs That Will Affect Care: None Current Living Situation: Spouse Other Information That Helps Us Care for You: No Feels Safe at Home: Yes Safety Concerns: Feels Safe At This Time Smoking Status: Never smoker Do You Dip or Chew Tobacco: No ; Second Hand Exposure: No ; Tobacco Cessation Education Requested by Patient: No Hx Alcohol Use: No Hx Substance Use: No Review of Systems Review of Systems: Review of systems is limited to that from family, as patient is unable to contribute due to baseline cognitive status Physical Exam Physical Exam: The patient is unresponsive, normocephalic and atraumatic, lying in bed and in no acute distress. HEENT--PERRL, EOMI, mucous membranes and oropharynx dry. Neck--supple. No JVD. No bruits. Thyroid normal, trachea midline, no adenopathy. Heart--normal S1 and S2. No murmurs, rubs or gallops. Lungs--clear bilaterally, no respiratory distress, no accessory muscle use. Abdomen--normal bowel sounds and soft. Nontender. Nondistended, mildly tympanitic. Extremities--no cyanosis or clubbing. Trace bilateral pretibial pitting edema. Dermatologic--normal skin turgor, normal color, no abnormal lymph nodes, no rash. Neurologic--cranial nerves II through XII grossly intact. Rheumatologic--limited exam. Psychiatric--unresponsive Results & Data Vital Signs (Past 12 Hours) Vital Signs Temp Pulse Resp BP Pulse Ox 05/12/19 02:40 97.9 F 05/12/19 02:30 74 12 103/45 L 92 05/12/19 02:15 70 20 103/46 L 92 05/12/19 02:00 85 13 107/53 L 92 05/12/19 01:45 82 16 98/52 L 92 05/12/19 01:30 81 20 99/50 L 93 05/12/19 01:19 98.6 F 05/12/19 01:15 77 17 101/45 L 93 05/12/19 01:00 77 26 H 102/50 L 95 05/12/19 00:52 90 24 119/53 L 96 05/12/19 00:46 87 26 H 112/61 96 05/12/19 00:30 87 15 134/61 96 05/12/19 00:16 88 124/57 L 91 05/12/19 00:00 81 26 H 132/56 L 95 05/11/19 23:45 76 26 H 110/51 L 94 05/11/19 23:25 101.3 F H 88 27 H 124/62 94 Laboratory Results Laboratory Results WBC 22.06 K/uL (4.8-10.8) H 05/11/19 23:54 RBC 4.27 M/uL (4.7-6.1) L 05/11/19 23:54 Hgb 13.1 g/dL (14.0-18.0) L 05/11/19 23:54 Hct 39.1 % (42-52) L 05/11/19 23:54 MCV 91.6 fL (80-100) 05/11/19 23:54 MCH 30.7 pg (25-34) 05/11/19 23:54 MCHC 33.5 g/dL (32-36) 05/11/19 23:54 RDW Std Deviation 44.2 fL (36.4-46.3) 05/11/19 23:54 RDW Coeff of [place] 13.2 % (11.5-14.5) 05/11/19 23:54 Plt Count 141 K/uL (130-400) 05/11/19 23:54 MPV 12.6 fL (7.4-10.4) H 05/11/19 23:54 Immature Gran % (Auto) 0.5 % 05/11/19 23:54 Neut % (Auto) 74.5 % 05/11/19 23:54 Lymph % (Auto) 16.3 % 05/11/19 23:54 [place] % (Auto) 8.4 % 05/11/19 23:54 Eos % (Auto) 0.1 % 05/11/19 23:54 Baso % (Auto) 0.2 % 05/11/19 23:54 Immature Gran # (Auto) 0.11 K/uL (0.00-0.02) H 05/11/19 23:54 Neut # (Auto) 16.45 K/uL (1.4-6.5) H 05/11/19 23:54 Lymph # (Auto) 3.59 K/uL (1.2-3.4) H 05/11/19 23:54 [place] # (Auto) 1.85 K/uL (0.11-0.59) H 05/11/19 23:54 Eos # (Auto) 0.02 K/uL (0-0.5) 05/11/19 23:54 Baso # (Auto) 0.04 K/uL (0-0.2) 05/11/19 23:54 PT 12.4 Seconds (9.0-12.0) H 05/11/19 23:54 INR 1.2 (0.9-1.1) H 05/11/19 23:54 APTT 31.9 Seconds (21.0-31.0) H 05/11/19 23:54 PTT Ratio 1.2 05/11/19 23:54 Sodium 139 mmol/L (136-145) 05/11/19 23:54 Potassium 3.8 mmol/L (3.5-5.1) 05/11/19 23:54 Chloride 107 mmol/L (98-107) 05/11/19 23:54 Carbon Dioxide 24 mmol/L (21-32) 05/11/19 23:54 Anion Gap 8.0 (3-11) 05/11/19 23:54 BUN 15 mg/dl (7-18) 05/11/19 23:54 Creatinine 1.23 mg/dl (0.6-1.4) 05/11/19 23:54 Est Cr Clr Drug Dosing 49.2 ml/min 05/11/19 23:54 Est GFR ( Amer) 60.8 05/11/19 23:54 Est GFR (Non-Af Amer) 52.5 05/11/19 23:54 BUN/Creatinine Ratio 12.0 (10-20) 05/11/19 23:54 Glucose 143 mg/dl (70-99) H 05/11/19 23:54 Lactate 1.6 mmol/L (0.4-2.0) 05/11/19 23:54 Calcium 8.2 mg/dl (8.5-10.1) L 05/11/19 23:54 Total Bilirubin 0.8 mg/dl (0.2-1) 05/11/19 23:54 AST 25 U/L (15-37) 05/11/19 23:54 ALT 25 U/L (12-78) 05/11/19 23:54 Alkaline Phosphatase 71 U/L (45-117) 05/11/19 23:54 Total Protein 6.4 gm/dl (6.4-8.2) 05/11/19 23:54 Albumin 2.4 gm/dl (3.4-5.0) L 05/11/19 23:54 Globulin 4.0 gm/dl (2.5-4.0) 05/11/19 23:54 Albumin/Globulin Ratio 0.6 (0.9-2) L 05/11/19 23:54 Specimen Hemolysis 05/11/19 23:54 Urine Color Dark Yellow 05/11/19 23:58 Urine Appearance Cloudy (Clear) A 05/11/19 23:58 Urine pH 5.5 (4.5-7.5) 05/11/19 23:58 Ur Specific [place] 1.027 (1.000-1.030) 05/11/19 23:58 Urine Protein 2+ (Negative) H 05/11/19 23:58 Urine Glucose (UA) Negative (Negative) 05/11/19 23:58 Urine Ketones 1+ (Negative) H 05/11/19 23:58 Urine Blood 3+ (Negative) H 05/11/19 23:58 Urine Nitrite Negative (Negative) 05/11/19 23:58 Urine Bilirubin Negative (Negative) 05/11/19 23:58 Urine Urobilinogen Negative (Negative) 05/11/19 23:58 Ur Leukocyte Esterase 2+ (Negative) H 05/11/19 23:58 Urine WBC (Auto) >30 /hpf (0-5) H 05/11/19 23:58 Urine RBC (Auto) 5-10 /hpf (0-4) H 05/11/19 23:58 U Hyaline Cast (Auto) 1-5 /lpf (0-5) 05/11/19 23:58 U Epithel Cells (Auto) 10-20 /lpf (0-5) H 05/11/19 23:58 Urine Bacteria (Auto) 4+ (Negative) H 05/11/19 23:58 Code Status & VTE Plan Code Status Full code, as discussed with and daughter, who are present in the room. VTE Prophylaxis Plan VTE Prophylaxis will be ordered: Yes PG Care Time/CCT Total # of Minutes Spent Total Time Spent with Patient: Total time spent is greater than 50% in coordination of care (as documented) at patient's floor/unit and/or counseling patient: (1) Dementia Dementia type: other frontotemporal dementia Dementia behavioral disturbance: without behavioral disturbance Qualified Code(s): G31.09 - Other frontotemporal dementia; F02.80 - Dementia in other diseases classified elsewhere without behavioral disturbance (2) CAD (coronary artery disease), [place] coronary artery [place] vs. 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
[2019-05-12] MEDS: FAMOTIDINE 20 MG in SYRINGE 3 ML IV SCH ×2 (04:33→16:15)
[2019-05-12] MEDS: PIPERACILLIN/TAZOBACTAM 3.375 GM in DEXTROSE 5% 100 ML IV SCH ×3 (04:33→21:33)
--- NOTE | 2019-05-12 04:33 | Emergency Department Note ---
Entered by Manny Freeman acting as a scribe for History of Present Illness General Chief complaint: Fever Stated complaint: FEVER/POSSIBLE SEPSIS Time Seen by Provider: 05/11/19 23:29 Source: patient, family () and other (nurse) History of Present Illness Onset (ago): day(s) (tonight) Severity: moderate Pain Consistency: + constant Quality: + other (fever) Associated symptoms: + other (Positive for weakness, decreased bowel movements, minimal urinary output, dark/foul smelling urine, and dizziness. Negative for pain.) The patient is an 88 year old male who presents to the emergency department with complaints of a constant fever beginning tonight. Per nurse, the patient has a history of Parkinsons and dementia. Per , the patient seemed weak all throughout the day today. She notes that the patient has also had decreased bowel movements. She reports that the patient developed a high fever and minimal urinary output tonight, prompting his visit to the emergency department. She states that the patients urine was also dark and foul smelling. The patient denies any pain. Per , the patient has been dizzy for the last week. She notes that the patient had a CT scan a few days ago which came back negative. She reports that the patient has a history of previous UTIs, but she states that the patient has not had one in a long time. She notes that the patient received a flu shot this year. HPI limited secondary to dementia. Home Medications Home Medications Medication Instructions Recorded Confirmed Type aspirin 81 mg PO QAM 03/18/18 05/12/19 History cholecalciferol (vitamin D3) 4,000 unit PO QAM 03/18/18 05/12/19 History [Vitamin D3] clopidogrel 75 mg PO HS 03/18/18 05/12/19 History levothyroxine 75 mcg PO QAM 03/18/18 05/12/19 History lisinopril 2.5 mg PO QAM 03/18/18 05/12/19 History multivitamin 1 tab PO QAM 03/18/18 05/12/19 History ranitidine HCl 150 mg PO BIDM 03/18/18 05/12/19 History terazosin 4 mg PO HS 03/18/18 05/12/19 History simvastatin [Zocor] 40 mg PO HS 04/29/18 05/12/19 History calcium citrate 250 mg tablet 250 mg PO DAILY tab 01/08/19 05/12/19 History metoprolol tartrate 25 mg tablet 12.5 mg PO BID tab 01/08/19 05/12/19 History polyethylene glycol 3350 17 See Rx Instructions .ROUTE 01/08/19 05/12/19 History gram/dose oral powder .COMPLEX gm insulin regular human 100 regular 1 sliding scale dose SQ 01/14/19 05/12/19 Rx human 100 unit/mL injection USEASDIRECTD #10 ml solution insulin NPH isoph U-100 human 100 30 unit SUBCUT .COMPLEX 04/24/19 05/12/19 History human 100 unit/mL subcutaneous suspension vitamin B complex 1 tab PO DAILY 05/12/19 05/12/19 History Allergies Allergy/AdvReac Type Severity Reaction Status Date / Time No Known Allergies Allergy Verified 05/12/19 00:17 Past Med/Surg History Medical History (Updated 05/12/19 @ 03:42 by Trey Story MD) CAD (coronary artery disease), [place] coronary artery Dementia (Chronic) Diabetes (Chronic) GERD (gastroesophageal reflux disease) (Chronic) HTN (hypertension), benign Hyperlipidemia (Chronic) Hypothyroid (Chronic) Parkinson disease Progressive supranuclear palsy Stroke (Resolved) UTI (urinary tract infection) Surgical History S/P CABG (coronary artery bypass graft) S/P cholecystectomy Social History Preferred Language: Georgian Communication Ability: Effective Tubing Tester Required: No Beliefs That Will Affect Care: None Current Living Situation: Spouse Other Information That Helps Us Care for You: No Feels Safe at Home: Yes Safety Concerns: Feels Safe At This Time Smoking Status: Never smoker Do You Dip or Chew Tobacco: No ; Second Hand Exposure: No ; Tobacco Cessation Education Requested by Patient: No Hx Alcohol Use: No Hx Substance Use: No Review of Systems ROS limited secondary to dementia. Physical Exam Vital Signs Vital Signs - 24 hr 05/11/19 23:25 05/11/19 23:45 05/12/19 00:00 Temperature 38.5 C H Temperature Source Rectal Pulse Rate 88 76 81 Pulse Rate from SpO2 Sensor 82 82 Respiratory Rate 27 H 26 H 26 H Blood Pressure 124/62 110/51 L 132/56 L Blood Pressure Mean 82 72 63 Pulse Oximetry 94 94 95 Oxygen Delivery Method Room Air Room Air Sepsis Recent Fever Within 48 Hours Yes Sepsis New/Unexplained Change in Mental Status Yes Sepsis Action Taken by Nursing Physician Notified 05/12/19 00:16 05/12/19 00:30 05/12/19 00:46 Temperature Temperature Source Pulse Rate 88 87 87 Pulse Rate from SpO2 Sensor 87 83 88 Respiratory Rate 15 26 H Blood Pressure 124/57 L 134/61 112/61 Blood Pressure Mean 82 89 89 Pulse Oximetry 91 96 96 Oxygen Delivery Method Sepsis Recent Fever Within 48 Hours Sepsis New/Unexplained Change in Mental Status Sepsis Action Taken by Nursing 05/12/19 00:52 05/12/19 01:00 05/12/19 01:15 Temperature Temperature Source Pulse Rate 90 77 77 Pulse Rate from SpO2 Sensor 86 79 75 Respiratory Rate 24 26 H 17 Blood Pressure 119/53 L 102/50 L 101/45 L Blood Pressure Mean 81 61 66 Pulse Oximetry 96 95 93 Oxygen Delivery Method Sepsis Recent Fever Within 48 Hours Sepsis New/Unexplained Change in Mental Status Sepsis Action Taken by Nursing 05/12/19 01:19 05/12/19 01:30 05/12/19 01:45 Temperature 37 C Temperature Source Oral Pulse Rate 81 82 Pulse Rate from SpO2 Sensor 80 87 Respiratory Rate 20 16 Blood Pressure 99/50 L 98/52 L Blood Pressure Mean 65 68 Pulse Oximetry 93 92 Oxygen Delivery Method Sepsis Recent Fever Within 48 Hours Sepsis New/Unexplained Change in Mental Status Sepsis Action Taken by Nursing 05/12/19 02:00 Temperature Temperature Source Pulse Rate 85 Pulse Rate from SpO2 Sensor 88 Respiratory Rate 13 Blood Pressure 107/53 L Blood Pressure Mean 66 Pulse Oximetry 92 Oxygen Delivery Method Sepsis Recent Fever Within 48 Hours Sepsis New/Unexplained Change in Mental Status Sepsis Action Taken by Nursing HEENT: Head - normocephalic and atraumatic. Pupils are pinpoint and nonreactive. Extraocular eye muscles are intact, and sclera are anicteric. Nose - moist nasal mucosa without discharge. Mouth - dry buccal mucosa. Oropharynx is nonerythematous and there is no tonsillar exudate or edema noted. Neck: Supple; no nuchal rigidity Heart: Regular rate and rhythm. There is a normal S1 and S2 with no murmurs, clicks, or gallops appreciated. Lungs: Clear to auscultation bilaterally with no wheezes, rales, or rhonchi. Abdomen: Soft, completely nontender, with good bowel sounds. There are no p alpable pulsatile masses or hepatosplenomegaly. There is no guarding, rigidity, or rebound noted. Abdomen is slightly distended. Extremities: No evidence of cyanosis, clubbing, or edema. There are easily palpable peripheral pulses. Skin: Hot and dry with good turgor and no rashes. Course Course 2336: The patient was evaluated in room A3. A complete history and physical examination were performed. Nursing notes and previous electronic medical records were reviewed. A septic protocol was performed. IV lock was established and labs were drawn as above. 0028: Sodium Chloride 500 mls @ 999 mls/hr IV, Acetaminophen 1000mg PO 0044: Upon reevaluation, the patient is stable. I discussed the findings and the treatment plan with the patient. He expresses agreement and understanding. I spoke with Dr. Story of the [facility] Hospitalist Service. The patient will be evaluated for further management. Consultations Consultation #1: I reviewed the patient's case with Dr. Story - Hospitalist, [facility]. He will evaluate the patient for further management. Time: 00:44 Administered Medications Potassium Chloride/Sodium Chloride (Normal Saline W/20 Meq Kcl) 20 meq in 1,000 mls @ 200 mls/hr IV .Q5H ADENIKE Stop: 05/12/19 06:44 Last Admin: 05/12/19 02:21 Dose: 200 mls/hr Documented by: [id number] Discontinued Medications Acetaminophen (Tylenol) 1,000 mg PO NOW STA Stop: 05/12/19 00:14 Last Admin: 05/12/19 00:28 Dose: 1,000 mg Documented by: [id number] Sodium Chloride (Nss) 500 mls @ 999 mls/hr IV .Q31M ONE Stop: 05/12/19 00:42 Last Infusion: 05/12/19 01:05 Dose: 0 mls/hr Documented by: [id number] Admin: 05/12/19 00:28 Dose: 999 mls/hr Documented by: [id number] Imipenem/Cilastatin Sodium 500 (mg/ Dextrose) 110 mls @ 100 mls/hr IV NOW STA; Protocol Stop: 05/12/19 01:33 Last Infusion: 05/12/19 02:27 Dose: 0 mls/hr Documented by: [id number] Admin: 05/12/19 01:17 Dose: 100 mls/hr Documented by: [id number] Daptomycin 500 mg/ Syringe 10 mls @ 5 mls/min IV NOW STA; Protocol Stop: 05/12/19 00:29 Last Admin: 05/12/19 00:59 Dose: 5 mls/min Documented by: [id number] Sodium Chloride (Nss) 500 mls @ 125 mls/hr IV .Q4H ADENIKE Stop: 06/11/19 01:14 Last Admin: 05/12/19 01:17 Dose: 125 mls/hr Documented by: [id number] Albumin Human (Albumin 25%) 50 mls @ 50 mls/hr IV Q1H ADENIKE Stop: 05/12/19 03:44 Last Infusion: 05/12/19 04:08 Dose: 0 mls/hr Documented by: [id number] Admin: 05/12/19 03:08 Dose: 50 mls/hr Documented by: [id number] Infusion: 05/12/19 03:08 Dose: 50 mls/hr Documented by: [id number] Admin: 05/12/19 02:21 Dose: 50 mls/hr Documented by: [id number] Critical Care Time Critical Care Time: Yes Total Critical Care Time: 60 I have personally spent 60 minutes of critical care time in the direct management of this patient. This includes bedside care, interpretation of diagnostic studies, and testing, discussion with consultants, patient, and famil y members, and other required patient management activities. This 60 minutes is in excess of all separately billable procedures. Medical Decision Making Differential Diagnosis Differential diagnoses include: sepsis, UTI, TIA, CVA, and febrile illness. Medical Records Attestation: I reviewed the patient's medical records. Home Medications Current Medication List: was personally reviewed by me Laboratory Data Attestation: I reviewed the patient's lab results. Result diagrams: 05/11/19 23:54 05/11/19 23:54 Lab Results 05/11/19 05/11/19 05/11/19 Range/Units 23:54 23:54 23:54 WBC 22.06 H (4.8-10.8) K/uL RBC 4.27 L (4.7-6.1) M/uL Hgb 13.1 L (14.0-18.0) g/dL Hct 39.1 L (42-52) % MCV 91.6 (80-100) fL MCH 30.7 (25-34) pg MCHC 33.5 (32-36) g/dL RDW Std Deviation 44.2 (36.4-46.3) fL RDW Coeff of [place] 13.2 (11.5-14.5) % Plt Count 141 (130-400) K/uL MPV 12.6 H (7.4-10.4) fL Immature Gran % (Auto) 0.5 % Neut % (Auto) 74.5 % Lymph % (Auto) 16.3 % [place] % (Auto) 8.4 % Eos % (Auto) 0.1 % Baso % (Auto) 0.2 % Immature Gran # (Auto) 0.11 H (0.00-0.02) K/uL Neut # (Auto) 16.45 H (1.4-6.5) K/uL Lymph # (Auto) 3.59 H (1.2-3.4) K/uL [place] # (Auto) 1.85 H (0.11-0.59) K/uL Eos # (Auto) 0.02 (0-0.5) K/uL Baso # (Auto) 0.04 (0-0.2) K/uL PT 12.4 H (9.0-12.0) Seconds INR 1.2 H (0.9-1.1) APTT 31.9 H (21.0-31.0) Seconds PTT Ratio 1.2 Sodium 139 (136-145) mmol/L Potassium 3.8 (3.5-5.1) mmol/L Chloride 107 (98-107) mmol/L Carbon Dioxide 24 (21-32) mmol/L Anion Gap 8.0 (3-11) BUN 15 (7-18) mg/dl Creatinine 1.23 (0.6-1.4) mg/dl Est Cr Clr Drug Dosing 49.2 ml/min Est GFR ( Amer) 60.8 Est GFR (Non-Af Amer) 52.5 BUN/Creatinine Ratio 12.0 (10-20) Glucose 143 H (70-99) mg/dl Lactate (0.4-2.0) mmol/L Calcium 8.2 L (8.5-10.1) mg/dl Total Bilirubin 0.8 (0.2-1) mg/dl AST 25 (15-37) U/L ALT 25 (12-78) U/L Alkaline Phosphatase 71 (45-117) U/L Total Protein 6.4 (6.4-8.2) gm/dl Albumin 2.4 L (3.4-5.0) gm/dl Globulin 4.0 (2.5-4.0) gm/dl Albumin/Globulin Ratio 0.6 L (0.9-2) Specimen Hemolysis Urine Color Urine Appearance (Clear) Urine pH (4.5-7.5) Ur Specific [place] (1.000-1.030) Urine Protein (Negative) Urine Glucose (UA) (Negative) Urine Ketones (Negative) Urine Blood (Negative) Urine Nitrite (Negative) Urine Bilirubin (Negative) Urine Urobilinogen (Negative) Ur Leukocyte Esterase (Negative) Urine WBC (Auto) (0-5) /hpf Urine RBC (Auto) (0-4) /hpf U Hyaline Cast (Auto) (0-5) /lpf U Epithel Cells (Auto) (0-5) /lpf Urine Bacteria (Auto) (Negative) 05/11/19 05/11/19 Range/Units 23:54 23:58 WBC (4.8-10.8) K/uL RBC (4.7-6.1) M/uL Hgb (14.0-18.0) g/dL Hct (42-52) % MCV (80-100) fL MCH (25-34) pg MCHC (32-36) g/dL RDW Std Deviation (36.4-46.3) fL RDW Coeff of [place] (11.5-14.5) % Plt Count (130-400) K/uL MPV (7.4-10.4) fL Immature Gran % (Auto) % Neut % (Auto) % Lymph % (Auto) % [place] % (Auto) % Eos % (Auto) % Baso % (Auto) % Immature Gran # (Auto) (0.00-0.02) K/uL Neut # (Auto) (1.4-6.5) K/uL Lymph # (Auto) (1.2-3.4) K/uL [place] # (Auto) (0.11-0.59) K/uL Eos # (Auto) (0-0.5) K/uL Baso # (Auto) (0-0.2) K/uL PT (9.0-12.0) Seconds INR (0.9-1.1) APTT (21.0-31.0) Seconds PTT Ratio Sodium (136-145) mmol/L Potassium (3.5-5.1) mmol/L Chloride (98-107) mmol/L Carbon Dioxide (21-32) mmol/L Anion Gap (3-11) BUN (7-18) mg/dl Creatinine (0.6-1.4) mg/dl Est Cr Clr Drug Dosing ml/min Est GFR ( Amer) Est GFR (Non-Af Amer) BUN/Creatinine Ratio (10-20) Glucose (70-99) mg/dl Lactate 1.6 (0.4-2.0) mmol/L Calcium (8.5-10.1) mg/dl Total Bilirubin (0.2-1) mg/dl AST (15-37) U/L ALT (12-78) U/L Alkaline Phosphatase (45-117) U/L Total Protein (6.4-8.2) gm/dl Albumin (3.4-5.0) gm/dl Globulin (2.5-4.0) gm/dl Albumin/Globulin Ratio (0.9-2) Specimen Hemolysis Urine Color Dark Yellow Urine Appearance Cloudy A (Clear) Urine pH 5.5 (4.5-7.5) Ur Specific [place] 1.027 (1.000-1.030) Urine Protein 2+ H (Negative) Urine Glucose (UA) Negative (Negative) Urine Ketones 1+ H (Negative) Urine Blood 3+ H (Negative) Urine Nitrite Negative (Negative) Urine Bilirubin Negative (Negative) Urine Urobilinogen Negative (Negative) Ur Leukocyte Esterase 2+ H (Negative) Urine WBC (Auto) >30 H (0-5) /hpf Urine RBC (Auto) 5-10 H (0-4) /hpf U Hyaline Cast (Auto) 1-5 (0-5) /lpf U Epithel Cells (Auto) 10-20 H (0-5) /lpf Urine Bacteria (Auto) 4+ H (Negative) Imaging Data Attestation: I personally reviewed and interpreted this imaging study as follows: My Impression: OBSTRUCTION SERIES: No obvious pulmonary pathology. Normal bowel gas pattern. No signs of bowel obstruction. No free air. ECG Data Attestation: I personally reviewed and interpreted this ECG as follows: Indication: + weakness Rate (beats per minute): 83 Rhythm: + normal sinus ECG ST segments: + ST depression (in anterior leads) ECG Findings: no PACs and no PVCs Comparison ECG Date: from (03/18/2018) Change: the following changes noted (Compared to prior, ST depression is new.) Blood Pressure Blood Pressure Findings: Elevated blood pressure Blood Pressure Disposition: elevated BP felt to be situational MDM Narrative The patient is an 88 year old male who presents to the emergency department with complaints of a constant fever beginning tonight. Patient's noticed a foul smell to his urine and he became significantly lethargic and weak tonight. She states that he was in bed most of the day today. Patient is a significantly elevated white blood cell count with a normal lactate. Patient is febrile. The patient was given oral Tylenol and bolused with IV crystalloids. His blood pressure remains stable. I am concerned about the possibility of pending sepsis. Patient was treated with 2 IV antibiotics. The patient's family abreast of the situation. I discussed the case with hospitalist and they will evaluate for further management. Impression & Plan Sepsis, UTI (urinary tract infection) Discharge Plan Visit Data *Final* Discharge Date/Time: 05/12/19 02:40 Chief Complaint: Fever Stated Complaint: FEVER/POSSIBLE SEPSIS ED Provider: Nini Jeffers Discharge Problem: Sepsis, UTI (urinary tract infection) Patient Disposition: Admitted As Inpatient Discharge Instructions Interventions: ED Discharge Assessment Last Done: 05/12/19 02:40 Discharge Problem: Sepsis Qualifiers: Sepsis type: sepsis due to unspecified organism Sepsis acute organ dysfunction status: unspecified Qualified Code(s): A41.9 - Sepsis, unspecified organism UTI (urinary tract infection) Qualifiers: Urinary tract infection type: site unspecified Hematuria presence: with hematuria Qualified Code(s): N39.0 - Urinary tract infection, site not specified The scribe's documentation has been prepared under my direction and personally reviewed by me in its entirety. I confirm that the note above accurately refl ects all work, treatment, procedures, and medical decision making performed by me.
[2019-05-12] MEDS: INSULIN ASPART 100 UNITS/ML 3 ML PEN SC SCH ×3 (06:20→18:27)
[2019-05-12 06:32] LABS: Estimated Average Glucose 154 mg/dl
--- NOTE | 2019-05-12 07:11 | XRay Report ---
AP CHEST WITH ABDOMINAL SERIES CLINICAL HISTORY: Fever. Constipation. FINDINGS: An AP, portable, upright chest radiograph is compared to study dated 03/18/2018 and correlated with [facility] CT dated 03/21/2018. Examination is degraded by patient rotation. Midline sternotomy wires are no yevgeniy. The heart is enlarged noting atherosclerotic calcification of the thoracic aorta. There is mild pulmonary vascular congestion. Scarring/atelectasis is noted at the lung bases. No airspace consolida tion or large pleural effusion is identified. No pneumothorax is seen. The skeletal structures are os teopenic. The bony thorax is grossly intact. Portable supine and erect abdominal radiographs are correlated with radiographs of the lumbar spine d ated 06/19/2017. There is a nonobstructed abdominal bowel gas pattern. No evidence of intraperitoneal f ree air is seen. Mild fecal retention is noted in the colon. There are no abnormal abdominal calcific ations. Advanced atherosclerotic calcification is noted in the abdominal aorta. Phleboliths are obser oralia in the pelvis. The lumbosacral spine and bony pelvis appear intact. IMPRESSION: 1. Cardiomegaly with mild pulmonary vascular congestion. 2. No airspace consolidation or large pleural effusion is identified. 3. Nonobstructed abdominal bowel gas pattern. Electronically signed by: Kevin Ge M.D. 05/12/2019 7:09 AM
[2019-05-12] MEDS: NSS + 20MEQ KCL 20 MEQ/1,000 ML BAG IV SCH ×2 (08:00→16:10)
[2019-05-12] MEDS: HEPARIN SOD 5,000 UNIT/0.5 ML VIAL SQ SCH ×2 (08:00→21:33)
[2019-05-12] MEDS: INSULIN GLARGINE SOLOSTAR 100 UNITS/ML 3 ML PEN SC SCH ×2 (09:42→21:33)
[2019-05-12 10:36] LABS: Est GFR (Non-African American) 53.5
--- NOTE | 2019-05-12 14:25 | Hospitalist Progress Note ---
Date of Service May 12, 2019 Assessment & Plan (1) Sepsis due to urinary tract infection: Will presume he has sepsis until proven otherwise given the leukocytosis, altered MS, weakness, etc. u/a highly suspicious for UTI. Await blood/urine cultures. Cont zosyn for now; narrow when able. Supportive care. (2) Metabolic encephalopathy: Likely due to UTI. Supportive care. Check TSH, B12, VBG, ammonia - all wnl. If he is found to have UTI and MS does not improve then MRI brain. 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 (4) CAD (coronary artery disease), [place] coronary artery: EKG today with mild anterior ST changes. Check troponin in am to r/o subacute ACS. Aspirin 81 mg every morning and clopidogrel 75 mg at bedtime, lisinopril 2.5 mg daily and metoprolol tartrate 12.5 mg p.o. twice daily - currently on hold due to NPO status / lethargy. Restart when able. (5) Diabetes: Start lantus 10 units BID. Novolog sliding scale. (6) GERD (gastroesophageal reflux disease): Cont famotidine 20 mg IV every 12 hours (7) Hyperlipidemia: Hold simvastatin 40 mg p.o. at bedtime until NPO status is lifted and he is more awake (8) Hypothyroid: Checked TSH today; wnl Cont synthroid as is (9) Dysphagia: Appreciate speech eval. Cleared with thickened liquids but too sleepy for oral nutrition. (10) DVT prophylaxis: heparin SC. updated by phone 05/12. PT, OT when able to participate. Subjective patient sleeping upon arrival. he awakens, but there is a long delay in him answering questions. he inconsistently answered my questions. at times he only gave 1-word answers -- and many times they were incorrect. staff report he has been sleepy most of the day. spoke with his by phone - she reports he has been weak for 1-2 weeks or so. saw his PCP - had outpatient head CT. she reports his right leg was recently weak. Review of Systems Review of Systems: Unobtainable due to cognitive status Physical Exam Constitutional: no acute distress masked facies, very sleepy ENMT: Mouth: + dry oral mucous membranes Respiratory: normal respiratory effort, lungs clear to auscultation Auscultation: + diminished lung sounds (bases) Cardiovascular: Rate/Rhythm: regular rate and regular rhythm Heart Sounds: normal S1 and normal S2; no murmur Vessels: posterior tibial pulses present and dorsalis pedis pulses present; no JVD Gastrointestinal (Abdomen): normal bowel sounds, soft, nontender, no hepatosplenomegaly Psychiatric: Orientation: alert, oriented to person and oriented to place; + not oriented to time Results & Data Vital Signs (Past 12 Hours) Vital Signs Temp Pulse Pulse Resp BP BP Pulse Ox 05/12/19 11:29 37.2 C 93 H 18 120/67 93 05/12/19 09:51 74 05/12/19 08:06 37.4 C 78 18 116/61 97 05/12/19 03:00 36.5 C 70 14 105/63 94 05/12/19 02:40 36.6 C 05/12/19 02:30 74 12 103/45 L 92 Laboratory Results Laboratory Results - last 24 hr 05/11/19 05/11/19 05/11/19 23:54 23:54 23:54 WBC 22.06 H RBC 4.27 L Hgb 13.1 L Hct 39.1 L MCV 91.6 MCH 30.7 MCHC 33.5 RDW Std Deviation 44.2 RDW Coeff of [place] 13.2 Plt Count 141 MPV 12.6 H Immature Gran % (Auto) 0.5 Neut % (Auto) 74.5 Lymph % (Auto) 16.3 [place] % (Auto) 8.4 Eos % (Auto) 0.1 Baso % (Auto) 0.2 Immature Gran # (Auto) 0.11 H Neut # (Auto) 16.45 H Lymph # (Auto) 3.59 H [place] # (Auto) 1.85 H Eos # (Auto) 0.02 Baso # (Auto) 0.04 PT 12.4 H INR 1.2 H APTT 31.9 H PTT Ratio 1.2 VBG pH VBG pCO2 VBG pO2 VBG HCO3 VBG O2 Saturation VBG Base Excess Barometric Pressure Sodium 139 Potassium 3.8 Chloride 107 Carbon Dioxide 24 Anion Gap 8.0 BUN 15 Creatinine 1.23 Est Cr Clr Drug Dosing 49.2 Est GFR ( Amer) 60.8 Est GFR (Non-Af Amer) 52.5 BUN/Creatinine Ratio 12.0 Glucose 143 H POC Glucose Estimat Average Glucose Hemoglobin A1c Lactate Calcium 8.2 L Total Bilirubin 0.8 AST 25 ALT 25 Alkaline Phosphatase 71 Ammonia Total Protein 6.4 Albumin 2.4 L Globulin 4.0 Albumin/Globulin Ratio 0.6 L Vitamin B12 TSH Specimen Hemolysis Urine Color Urine Appearance Urine pH Ur Specific [place] Urine Protein Urine Glucose (UA) Urine Ketones Urine Blood Urine Nitrite Urine Bilirubin Urine Urobilinogen Ur Leukocyte Esterase Urine WBC (Auto) Urine RBC (Auto) U Hyaline Cast (Auto) U Epithel Cells (Auto) Urine Bacteria (Auto) 05/11/19 05/11/19 05/12/19 23:54 23:58 05:47 WBC RBC Hgb Hct MCV MCH MCHC RDW Std Deviation RDW Coeff of [place] Plt Count MPV Immature Gran % (Auto) Neut % (Auto) Lymph % (Auto) [place] % (Auto) Eos % (Auto) Baso % (Auto) Immature Gran # (Auto) Neut # (Auto) Lymph # (Auto) [place] # (Auto) Eos # (Auto) Baso # (Auto) PT INR APTT PTT Ratio VBG pH VBG pCO2 VBG pO2 VBG HCO3 VBG O2 Saturation VBG Base Excess Barometric Pressure Sodium Potassium Chloride Carbon Dioxide Anion Gap BUN Creatinine Est Cr Clr Drug Dosing Est GFR ( Amer) Est GFR (Non-Af Amer) BUN/Creatinine Ratio Glucose POC Glucose Estimat Average Glucose 154 Hemoglobin A1c 7.0 H Lactate 1.6 Calcium Total Bilirubin AST ALT Alkaline Phosphatase Ammonia Total Protein Albumin Globulin Albumin/Globulin Ratio Vitamin B12 TSH Specimen Hemolysis Urine Color Dark Yellow Urine Appearance Cloudy A Urine pH 5.5 Ur Specific [place] 1.027 Urine Protein 2+ H Urine Glucose (UA) Negative Urine Ketones 1+ H Urine Blood 3+ H Urine Nitrite Negative Urine Bilirubin Negative Urine Urobilinogen Negative Ur Leukocyte Esterase 2+ H Urine WBC (Auto) >30 H Urine RBC (Auto) 5-10 H U Hyaline Cast (Auto) 1-5 U Epithel Cells (Auto) 10-20 H Urine Bacteria (Auto) 4+ H 05/12/19 05/12/19 05/12/19 06:17 09:58 11:22 WBC RBC Hgb Hct MCV MCH MCHC RDW Std Deviation RDW Coeff of [place] Plt Count MPV Immature Gran % (Auto) Neut % (Auto) Lymph % (Auto) [place] % (Auto) Eos % (Auto) Baso % (Auto) Immature Gran # (Auto) Neut # (Auto) Lymph # (Auto) [place] # (Auto) Eos # (Auto) Baso # (Auto) PT INR APTT PTT Ratio VBG pH VBG pCO2 VBG pO2 VBG HCO3 VBG O2 Saturation VBG Base Excess Barometric Pressure Sodium Potassium Chloride Carbon Dioxide Anion Gap BUN Creatinine 1.21 Est Cr Clr Drug Dosing 50.0 Est GFR ( Amer) 62.0 Est GFR (Non-Af Amer) 53.5 BUN/Creatinine Ratio Glucose POC Glucose 180 H 164 H Estimat Average Glucose Hemoglobin A1c Lactate Calcium Total Bilirubin AST ALT Alkaline Phosphatase Ammonia Total Protein Albumin Globulin Albumin/Globulin Ratio Vitamin B12 TSH Specimen Hemolysis Urine Color Urine Appearance Urine pH Ur Specific [place] Urine Protein Urine Glucose (UA) Urine Ketones Urine Blood Urine Nitrite Urine Bilirubin Urine Urobilinogen Ur Leukocyte Esterase Urine WBC (Auto) Urine RBC (Auto) U Hyaline Cast (Auto) U Epithel Cells (Auto) Urine Bacteria (Auto) 05/12/19 05/12/19 05/12/19 14:49 14:49 14:49 WBC RBC Hgb Hct MCV MCH MCHC RDW Std Deviation RDW Coeff of [place] Plt Count MPV Immature Gran % (Auto) Neut % (Auto) Lymph % (Auto) [place] % (Auto) Eos % (Auto) Baso % (Auto) Immature Gran # (Auto) Neut # (Auto) Lymph # (Auto) [place] # (Auto) Eos # (Auto) Baso # (Auto) PT INR APTT PTT Ratio VBG pH 7.43 H VBG pCO2 35 L VBG pO2 38 VBG HCO3 23 VBG O2 Saturation 74.0 VBG Base Excess -0.7 Barometric Pressure 724.7 Sodium 139 Potassium 3.9 Chloride 110 H Carbon Dioxide 23 Anion Gap 6.0 BUN 12 Creatinine 1.29 Est Cr Clr Drug Dosing 46.9 Est GFR ( Amer) 57.4 Est GFR (Non-Af Amer) 49.5 BUN/Creatinine Ratio 9.4 L Glucose 176 H POC Glucose Estimat Average Glucose Hemoglobin A1c Lactate Calcium 8.0 L Total Bilirubin AST ALT Alkaline Phosphatase Ammonia 22.0 Total Protein Albumin Globulin Albumin/Globulin Ratio Vitamin B12 TSH 0.507 Specimen Hemolysis Urine Color Urine Appearance Urine pH Ur Specific [place] Urine Protein Urine Glucose (UA) Urine Ketones Urine Blood Urine Nitrite Urine Bilirubin Urine Urobilinogen Ur Leukocyte Esterase Urine WBC (Auto) Urine RBC (Auto) U Hyaline Cast (Auto) U Epithel Cells (Auto) Urine Bacteria (Auto) 05/12/19 05/12/19 14:49 18:14 WBC RBC Hgb Hct MCV MCH MCHC RDW Std Deviation RDW Coeff of [place] Plt Count MPV Immature Gran % (Auto) Neut % (Auto) Lymph % (Auto) [place] % (Auto) Eos % (Auto) Baso % (Auto) Immature Gran # (Auto) Neut # (Auto) Lymph # (Auto) [place] # (Auto) Eos # (Auto) Baso # (Auto) PT INR APTT PTT Ratio VBG pH VBG pCO2 VBG pO2 VBG HCO3 VBG O2 Saturation VBG Base Excess Barometric Pressure Sodium Potassium Chloride Carbon Dioxide Anion Gap BUN Creatinine Est Cr Clr Drug Dosing Est GFR ( Amer) Est GFR (Non-Af Amer) BUN/Creatinine Ratio Glucose POC Glucose 135 H Estimat Average Glucose Hemoglobin A1c Lactate Calcium Total Bilirubin AST ALT Alkaline Phosphatase Ammonia Total Protein Albumin Globulin Albumin/Globulin Ratio Vitamin B12 713 TSH Specimen Hemolysis Urine Color Urine Appearance Urine pH Ur Specific [place] Urine Protein Urine Glucose (UA) Urine Ketones Urine Blood Urine Nitrite Urine Bilirubin Urine Urobilinogen Ur Leukocyte Esterase Urine WBC (Auto) Urine RBC (Auto) U Hyaline Cast (Auto) U Epithel Cells (Auto) Urine Bacteria (Auto) Diagnostic Findings urine and blood cx's pending but thus far negative PG Care Time/CCT Total # of Minutes Spent Total Time Spent with Patient: Total time spent is greater than 50% in c oordination of care (as documented) at patient's floor/unit and/or counseling patient: (1) Dementia Dementia type: other frontotemporal dementia Dementia behavioral disturbance: without behavioral disturbance Qualified Code(s): G31.09 - Other frontotemporal dementia; F02.80 - Dementia in other diseases classified elsewhere without behavioral disturbance (2) CAD (coronary artery disease), [place] coronary artery [place] vs. transplanted heart: [place] heart Associated angina: without angina Qualified Code(s): I25.10 - Atherosclerotic heart disease of [place] coronary artery without angina pectoris (3) Diabetes Diabetes mellitus type: type 2 Diabetes mellitus mcfp insulin use: with mcfp use Diabetes mellitus complication status: without complication Qualified Code(s): E11.9 - Type 2 diabetes mellitus without complications; Z79.4 - intermediate card tender (current) use of insulin (4) GERD (gastroesophageal reflux disease) Esophagitis presence: esophagitis presence not specified Qualified Code(s): K21.9 - Gastro-esophageal reflux disease without esophagitis (5) Hyperlipidemia Hyperlipidemia type: mixed hyperlipidemia Qualified Code(s): E78.2 - Mixed hyperlipidemia (6) Hypothyroid Hypothyroidism type: acquired Qualified Code(s): E03.9 - Hypothyroidism, unspecified (7) Dysphagia Dysphagia type: unspecified Qualified Code(s): R13.10 - Dysphagia, unspecified
[2019-05-12 15:05] LABS: Base Excess VBG -0.7 mEq/L; pH VBG 7.43 (7.36-7.41)
[2019-05-12 15:31] LABS: BUN Creatinine Ratio 9.4 (10-20); Creatinine Clr Calc Pharmacy 46.9 ml/min; Est GFR (African American) 57.4; Est GFR (Non-African American) 49.5; Potassium 3.9 mmol/L (3.5-5.1)
[2019-05-12 15:43] LABS: Thyroid Stimulating Hormone 0.507 uIu/ml (0.300-4.500)
[2019-05-12] MEDS ORDERED: bisacodyL 10 MG SUPP PR ONE (16:49)
[2019-05-12] MEDS: ACETAMINOPHEN 1,000 MG/100 ML VIAL IV PRN (20:00)
--- NOTE | 2019-05-12 21:39 | Ultrasound Report ---
US renal/blad retro comp HISTORY: Pain. Obstruction. UTI, lethargy; eval obstruction, stones, etc COMPARISON: None. FINDINGS: Right kidney: Maximum dimension 11.8 cm. No evidence for hydronephrosis. Normal corticomedullary diff erentiation and cortical thickness. Left kidney: Maximum linear dimension 10.9 cm. No evidence for hydronephrosis. Normal corticomedulla ry differentiation and cortical thickness. Bladder: No bladder wall thickening. The bilateral ureteral jets were identified. IMPRESSION: Normal renal ultrasound. The above report was generated using voice recognition software. It may contain grammatical, syntax or spelling errors. Electronically signed by: Ramon Saldivar M.D. 05/12/2019 9:38 PM
[2019-05-13] MEDS: INSULIN ASPART 100 UNITS/ML 3 ML PEN SC SCH ×5 (00:19→22:09)
[2019-05-13] MEDS: NSS + 20MEQ KCL 20 MEQ/1,000 ML BAG IV SCH ×2 (02:18→12:45)
[2019-05-13] MEDS: PIPERACILLIN/TAZOBACTAM 3.375 GM in DEXTROSE 5% 100 ML IV SCH ×3 (05:12→21:28)
[2019-05-13] MEDS: FAMOTIDINE 20 MG in SYRINGE 3 ML IV SCH ×2 (05:44→17:12)
[2019-05-13 07:03] LABS: Hematocrit (blood only) 36.2 % (42-52); Hemoglobin 11.8 g/dL (14.0-18.0); Mean Corpuscular Hemoglobin 30.8 pg (25-34); Mean Corpuscular Hgb Conc 32.6 g/dL (32-36); Mean Corpuscular Volume 94.5 fL (80-100); Mean Platelet Volume 12.1 fL (7.4-10.4); Platelet Count 127 K/uL (130-400); Platelet Estimate Decreased (Normal); RDW Coefficient of Variation 13.7 % (11.5-14.5); RDW Standard Deviation 47.3 fL (36.4-46.3); Red Blood Count 3.83 M/uL (4.7-6.1)
[2019-05-13 07:07] LABS: BUN Creatinine Ratio 12.1 (10-20); Creatinine Clr Calc Pharmacy 48.8 ml/min; Est GFR (African American) 60.2; Est GFR (Non-African American) 51.9; Magnesium 1.9 mg/dl (1.8-2.4); Potassium 4.1 mmol/L (3.5-5.1)
[2019-05-13] MEDS: HEPARIN SOD 5,000 UNIT/0.5 ML VIAL SQ SCH ×2 (09:00→21:28)
[2019-05-13] MEDS: INSULIN GLARGINE SOLOSTAR 100 UNITS/ML 3 ML PEN SC SCH ×2 (09:01→21:29)
--- NOTE | 2019-05-13 20:53 | Hospitalist Progress Note ---
Date of Service May 13, 2019 Assessment & Plan (1) Septicemia: blood cultures + for GNR. repeat blood cultures dispatched today to ensure sterility. remains on zosyn. GNR in blood almost certainly is e. coli. source - UTI. continue IV abx and supportive care. (2) Sepsis due to urinary tract infection: e.coli UTI - final urine culture pending. see "septicemia" above. renal u/s negative for hydronephrosis or stones. Cr stable on BMP today. (3) Metabolic encephalopathy: due to septicemia/UTI. Supportive care. TSH, B12, VBG, ammonia - all wnl. mental status mildly improved today. 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 (5) CAD (coronary artery disease), [place] coronary artery: EKG at admission with mild anterior ST changes but NO obvious ischemic symptoms. Troponin this am wnl. Continue Aspirin 81 mg every morning and clopidogrel 75 mg at bedtime, lisinopril 2.5 mg daily BB on hold due to bradycardia (6) Diabetes: Cont lantus 10 units BID + Novolog sliding scale. Control adequate. (7) GERD (gastroesophageal reflux disease): Cont famotidine 20 mg Convert IV to PO (8) Hyperlipidemia: Resume simvastatin 40 mg daily (9) Hypothyroid: TSH wnl Cont synthroid as is (10) Dysphagia: Appreciate speech eval. Cleared with thickened liquids. Resume diet today since he is more awake/alert. (11) Bradycardia: sinus beta brown on hold no symptoms follow (12) DVT prophylaxis: heparin SC. updated by phone 05/12. left another message for on 05/13. PT, OT. Cont IV fluids for now. Subjective tele overnight - NSR or episodes of sinus colleen. It also appears he has a marked sinus arrhythmia. NO pauses, NO block. patient more awake today. knew it was 2018 and that it was Sunday. he did feel he was at [employer], however. denied any pain in any location. gathering additional historical information was still challenging however because of dementia. Review of Systems Review of Systems: Unobtainable due to cognitive status Physical Exam Constitutional: no acute distress ENMT: external ear and nose normal, oropharynx normal Respiratory: normal respiratory effort, lungs clear to auscultation Auscultation: + diminished lung sounds (bases) Cardiovascular: Rate/Rhythm: regular rate and regular rhythm Heart Sounds: normal S1 and normal S2; no murmur Vessels: posterior tibial pulses present and dorsalis pedis pulses present; no JVD Gastrointestinal (Abdomen): normal bowel sounds, soft, nontender, no hepatosplenomegaly Neurologic: masked facies; slow movements but does indeed move all limbs Psychiatric: Orientation: alert, oriented to person and oriented to time; + not oriented to place Results & Data Vital Signs (Past 12 Hours) Vital Signs Temp Pulse Resp BP BP Pulse Ox 05/13/19 19:32 37.7 C H 68 20 155/71 H 96 05/13/19 16:00 20 05/13/19 15:12 36.8 C 70 20 150/79 H 91 05/13/19 12:00 22 05/13/19 11:43 37.1 C 58 L 18 144/69 H 93 Laboratory Results Laboratory Results - last 24 hr 05/12/19 05/12/19 05/13/19 21:00 23:56 05:52 WBC RBC Hgb Hct MCV MCH MCHC RDW Std Deviation RDW Coeff of [place] Plt Count MPV Platelet Estimate Sodium Potassium Chloride Carbon Dioxide Anion Gap BUN Creatinine Est Cr Clr Drug Dosing Est GFR ( Amer) Est GFR (Non-Af Amer) BUN/Creatinine Ratio Glucose POC Glucose 125 H 138 H 140 H Calcium Magnesium Troponin I 05/13/19 05/13/19 05/13/19 06:15 06:15 06:15 WBC 16.50 H RBC 3.83 L Hgb 11.8 L Hct 36.2 L MCV 94.5 MCH 30.8 MCHC 32.6 RDW Std Deviation 47.3 H RDW Coeff of [place] 13.7 Plt Count 127 L MPV 12.1 H Platelet Estimate Decreased L Sodium 139 Potassium 4.1 Chloride 112 H Carbon Dioxide 24 Anion Gap 3.0 BUN 15 Creatinine 1.24 Est Cr Clr Drug Dosing 48.8 Est GFR ( Amer) 60.2 Est GFR (Non-Af Amer) 51.9 BUN/Creatinine Ratio 12.1 Glucose 134 H POC Glucose Calcium 8.0 L Magnesium 1.9 Troponin I 0.033 05/13/19 05/13/19 05/13/19 09:03 12:01 16:23 WBC RBC Hgb Hct MCV MCH MCHC RDW Std Deviation RDW Coeff of [place] Plt Count MPV Platelet Estimate Sodium Potassium Chloride Carbon Dioxide Anion Gap BUN Creatinine Est Cr Clr Drug Dosing Est GFR ( Amer) Est GFR (Non-Af Amer) BUN/Creatinine Ratio Glucose POC Glucose 123 H 131 H 142 H Calcium Magnesium Troponin I Diagnostic Findings urine cx - e.coli, sens pending blood cx's - 1/2 sets + for GNR PG Care Time/CCT Total # of Minutes Spent Total Time Spent with Patient: Total time spent is greater than 50% in coordination of care (as documented) at patient's floor/unit and/or counseling patient: (1) Diabetes Diabetes mellitus complication status: without complication Diabetes mellitus superintendent container terminal insulin use: with superintendent container terminal use Diabetes mellitus type: type 2 Qualified Code(s): E11.9 - Type 2 diabetes mellitus without complications; Z79.4 - termite technician (current) use of insulin (2) Dysphagia Dysphagia type: unspecified Qualified Code(s): R13.10 - Dysphagia, unspecified (3) Dementia Dementia behavioral disturbance: without behavioral disturbance Dementia type: other frontotemporal dementia Qualified Code(s): G31.09 - Other frontotemporal dementia; F02.80 - Dementia in other diseases classified elsewhere without behavioral disturbance (4) Hyperlipidemia Hyperlipidemia type: mixed hyperlipidemia Qualified Code(s): E78.2 - Mixed hyperlipidemia (5) Hypothyroid Hypothyroidism type: acquired Qualified Code(s): E03.9 - Hypothyroidism, unspecified (6) CAD (coronary artery disease), [place] coronary artery Associated angina: without angina [place] vs. transplanted heart: [place] heart Qualified Code(s): I25.10 - Atherosclerotic heart disease of [place] coronary artery without angina pectoris (7) GERD (gastroesophageal reflux disease) Esophagitis presence: esophagitis presence not specified Qualified Code(s): K21.9 - Gastro-esophageal reflux disease without esophagitis
[2019-05-13] MEDS ORDERED: Nursing to Pharmacy Communication ONE (21:37)
[2019-05-13] MEDS: ACETAMINOPHEN 1,000 MG/100 ML VIAL IV PRN (23:43)
[2019-05-14] MEDS: PIPERACILLIN/TAZOBACTAM 3.375 GM in DEXTROSE 5% 100 ML IV SCH (04:51)
[2019-05-14] MEDS: FAMOTIDINE 20 MG in SYRINGE 3 ML IV SCH (04:51)
[2019-05-14 06:28] LABS: Creatinine Clr Calc Pharmacy 50.8 ml/min; Est GFR (African American) 63.3; Est GFR (Non-African American) 54.6
[2019-05-14] MEDS: CIPROFLOXACIN 400 MG/200 ML BAG IV SCH ×2 (08:53→21:06)
[2019-05-14] MEDS: INSULIN GLARGINE SOLOSTAR 100 UNITS/ML 3 ML PEN SC SCH ×2 (08:53→21:07)
[2019-05-14] MEDS: FAMOTIDINE 20 MG TAB PO SCH ×2 (08:53→21:09)
[2019-05-14] MEDS: HEPARIN SOD 5,000 UNIT/0.5 ML VIAL SQ SCH ×2 (08:53→21:06)
[2019-05-14] MEDS: INSULIN ASPART 100 UNITS/ML 3 ML PEN SC SCH ×4 (08:57→21:08)
--- NOTE | 2019-05-14 18:44 | Hospitalist Progress Note ---
Date of Service May 14, 2019 Assessment & Plan (1) Septicemia: 2nd to pansens e.coli UTI. improving. repeat blood cultures negative to date suggesting sterility. stop zosyn. change to IV cipro BID. plan 14 days of Rx from date of most recent neg blood culture. cont supportive care. (2) Sepsis due to urinary tract infection: e.coli UTI. see "septicemia" above. renal u/s negative for hydronephrosis or stones. repeat BMP and CBC am. (3) Metabolic encephalopathy: due to septicemia/UTI. IMPROVING. Supportive care. TSH, B12, VBG, ammonia - all wnl. 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 (5) CAD (coronary artery disease), [place] coronary artery: EKG at admission with mild anterior ST changes but NO obvious ischemic symptoms. Troponin was normal. Continue Aspirin 81 mg every morning and clopidogrel 75 mg at bedtime, lisinopril 2.5 mg daily BB on hold due to bradycardia (6) Diabetes: Cont lantus 10 units BID + Novolog sliding scale. Controlled. Adjust as needed. (7) GERD (gastroesophageal reflux disease): Cont famotidine 20 mg BID (8) Hyperlipidemia: Cont simvastatin 40 mg daily (9) Hypothyroid: TSH wnl Cont synthroid as is (10) Dysphagia: Appreciate speech eval. Cleared with thickened liquids. Diet resumed. (11) Bradycardia: sinus; no AV block or pauses increased vagal tone? beginnings of SSS? beta brown on hold no symptoms follow TSH wnl (12) DVT prophylaxis: heparin SC. updated by phone 05/12. left another message for on 05/13. updated her again by phone on 05/14. PT, OT both advising rehab; in agreement. social work to assist in placement. Subjective patient much more awake, alert this am. staff was feeding him breakfast during my visit. he knew he was in the hospital and that it was 2018. he said "I feel terrible". didn't have any specific complaint but was simply feeling poorly, weak, etc. denied pain in any location. had lengthy discussion w/ patient's by phone. told her that PT/OT both recommending rehab. he is max assist for any transfer, ADLs, etc. she is in agreement she could not take care of him in this state. tele - very, very brief episodes of transient bradycardia when he sleeps (HRs upper 30s/low 40s for a second or two) no block no pauses no dysrhythmia seen Review of Systems 2 Constitutional: + fatigue; no fever Ear, Nose, Mouth, Throat: + dysphagia Respiratory: no cough and no dyspnea Cardiovascular: no chest pain Gastrointestinal: no abdominal pain Physical Exam Constitutional: no acute distress much more awake/alert ENMT: external ear and nose normal, oropharynx normal Respiratory: normal respiratory effort, lungs clear to auscultation Auscultation: + diminished lung sounds (bases) Cardiovascular: Rate/Rhythm: regular rate and regular rhythm Heart Sounds: normal S1 and normal S2; no murmur Vessels: posterior tibial pulses present a nd dorsalis pedis pulses present; no JVD Gastrointestinal (Abdomen): normal bowel sounds, soft, nontender, no hepatosplenomegaly Inspection/Auscultation: + abdomen distended (mild) Neurologic: masked facies; bradykinesias; increased tone Psychiatric: Orientation: alert, oriented to person, oriented to place and oriented to time Results & Data Vital Signs (Past 12 Hours) Vital Signs Temp Pulse Resp BP BP Pulse Ox 05/14/19 15:38 36.8 C 60 18 142/63 H 96 05/14/19 11:10 36.5 C 55 L 18 136/61 97 05/14/19 07:16 36.4 C L 43 L 18 146/65 H 97 Laboratory Results Laboratory Results - last 24 hr 05/13/19 05/14/19 05/14/19 21:18 05:32 07:30 Creatinine 1.19 Est Cr Clr Drug Dosing 50.8 Est GFR ( Amer) 63.3 Est GFR (Non-Af Amer) 54.6 POC Glucose 141 H 133 H 05/14/19 05/14/19 11:18 16:04 Creatinine Est Cr Clr Drug Dosing Est GFR ( Amer) Est GFR (Non-Af Amer) POC Glucose 164 H 135 H Diagnostic Findings blood/urine cx's with e.coli - pansens repeat blood cx's neg to date PG Care Time/CCT Total # of Minutes Spent Total Time Spent with Patient: Total time spent is greater than 50% in coordination of care (as documented) at patient's floor/unit and/or counseling patient: (1) Diabetes Diabetes mellitus complication status: without complication Diabetes mellitus halfway insulin use: with intermission coordinator use Diabetes mellitus type: type 2 Qualified Code(s): E11.9 - Type 2 diabetes mellitus without complications; Z79.4 - [facility] (current) use of insulin (2) Dysphagia Dysphagia type: unspecified Qualified Code(s): R13.10 - Dysphagia, unspecified (3) Dementia Dementia behavioral disturbance: without behavioral disturbance Dementia type: other frontotemporal dementia Qualified Code(s): G31.09 - Other frontotemporal dementia; F02.80 - Dementia in other diseases classified elsewhere without behavioral disturbance (4) Hyperlipidemia Hyperlipidemia type: mixed hyperlipidemia Qualified Code(s): E78.2 - Mixed hyperlipidemia (5) Hypothyroid Hypothyroidism type: acquired Qualified Code(s): E03.9 - Hypothyroidism, unspecified (6) CAD (coronary artery disease), [place] coronary artery Associated angina: without angina [place] vs. transplanted heart: [place] heart Qualified Code(s): I25.10 - Atherosclerotic heart disease of [place] coronary artery without angina pectoris (7) GERD (gastroesophageal reflux disease) Esophagitis presence: esophagitis presence not specified Qualified Code(s): K21.9 - Gastro-esophageal reflux disease without esophagitis
[2019-05-15 05:54] LABS: Hematocrit (blood only) 35.5 % (42-52); Hemoglobin 11.8 g/dL (14.0-18.0); Mean Corpuscular Hemoglobin 30.3 pg (25-34); Mean Corpuscular Hgb Conc 33.2 g/dL (32-36); Mean Platelet Volume 11.8 fL (7.4-10.4); Platelet Count 180 K/uL (130-400); RDW Coefficient of Variation 13.2 % (11.5-14.5); RDW Standard Deviation 44.1 fL (36.4-46.3); White Blood Count 8.07 K/uL (4.8-10.8)
[2019-05-15 06:31] LABS: BUN Creatinine Ratio 12.9 (10-20); Calcium 8.1 mg/dl (8.5-10.1); Creatinine Clr Calc Pharmacy 57.6 ml/min; Est GFR (African American) 73.6; Est GFR (Non-African American) 63.5; Potassium 3.6 mmol/L (3.5-5.1)
[2019-05-15] MEDS: INSULIN GLARGINE SOLOSTAR 100 UNITS/ML 3 ML PEN SC SCH ×2 (08:01→21:22)
[2019-05-15] MEDS: INSULIN ASPART 100 UNITS/ML 3 ML PEN SC SCH ×4 (08:01→21:23)
[2019-05-15] MEDS: FAMOTIDINE 20 MG TAB PO SCH ×2 (08:02→21:23)
[2019-05-15] MEDS: HEPARIN SOD 5,000 UNIT/0.5 ML VIAL SQ SCH ×2 (08:02→21:24)
[2019-05-15] MEDS: LACTOBACILLUS ACIDOPHILUS (FLORANEX) TAB PO SCH ×3 (08:37→17:22)
[2019-05-15] MEDS: CIPROFLOXACIN 500 MG TAB PO SCH ×2 (08:37→21:21)
--- NOTE | 2019-05-15 20:31 | Hospitalist Progress Note ---
Date of Service May 15, 2019 Assessment & Plan (1) Septicemia: 2nd to pansens e.coli UTI. resolved. repeat blood cultures cont to be neg. stop IV cipro BID. PO cipro BID x 14 days of Rx from date of most recent neg blood culture. cont supportive care. (2) Sepsis due to urinary tract infection: e.coli UTI. see "septicemia" above. renal u/s negative for hydronephrosis or stones. (3) Metabolic encephalopathy: due to septicemia/UTI. IMPROVING/resolved. Supportive care. TSH, B12, VBG, ammonia - all wnl. 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 (5) CAD (coronary artery disease), [place] coronary artery: EKG at admission with mild anterior ST changes but NO obvious ischemic symptoms. Troponin was normal. Continue Aspirin 81 mg every morning and clopidogrel 75 mg at bedtime, lisinopril 2.5 mg daily BB on hold due to bradycardia (6) Diabetes: Cont lantus 10 units BID + Novolog sliding scale. Controlled. Resume outpatient regimen at d/c. (7) GERD (gastroesophageal reflux disease): Cont famotidine 20 mg BID (8) Hyperlipidemia: Cont simvastatin 40 mg daily (9) Hypothyroid: TSH wnl Cont synthroid as is (10) Dysphagia: Appreciate speech eval. Cleared with thickened liquids. tolerating diet. (11) Bradycardia: sinus; no AV block or pauses increased vagal tone? beginnings of SSS? beta brown on hold no symptoms follow TSH wnl consider 30-day monitor? will d/w cardiology (12) DVT prophylaxis: heparin SC. updated by phone 05/12. left another message for on 05/13. updated her again by phone on 05/14. family updated at bedside today 05/15. family reassured myself and JOHN Thompson, that they can continue to provide 24/7 care at home. hospital bed script completed. plan for d/c home tomorrow with PO cipro. d/c jasso Keith pt sitting in chair by bedside. , daughter, grand-daughter and a friend are all at bedside. I met with the pt/family along with rn case manager to discuss dispo. Family confirms that essentially 2 people are with the patient at all times. they observed the PT session today and also confirmed that he is close to baseline and that they can continue to care for him in the home. he ate very well this am per his . 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 tele - NSR while awake, sinus colleen at rest. Review of Systems Review of Systems: very difficult to obtain ROS he denies having pain in any location staff and family report no specific complaints yesterday he c/o weakness; he denied this today Physical Exam Constitutional: no acute distress sitting in chair; masked facies/bradykinesias ENMT: external ear and nose normal, oropharynx normal Respiratory: normal respiratory effort, lungs clear to auscultation Cardiovascular: Rate/Rhythm: regular rate and regular rhythm Heart Sounds: normal S1 and normal S2; no murmur Vessels: posterior tibial pulses present and dorsalis pedis pulses present; no JVD Gastrointestinal (Abdomen): normal bowel sounds, soft, nontender, no hepatosplenomegaly Neurologic: hypertonicity of arms/legs due to parkinson's Psychiatric: Orientation: alert Results & Data Vital Signs (Past 12 Hours) Vital Signs Temp Pulse Pulse Resp BP BP Pulse Ox 05/15/19 20:00 36.3 C L 53 L 18 133/63 96 05/15/19 16:16 36.6 C 54 L 12 146/70 H 151/71 H 97 05/15/19 16:00 47 L 05/15/19 12:00 36.8 C 62 18 130/65 97 Laboratory Results Laboratory Results - last 24 hr 05/15/19 05/15/19 05/15/19 05:31 05:31 07:44 WBC 8.07 RBC 3.90 L Hgb 11.8 L Hct 35.5 L MCV 91.0 MCH 30.3 MCHC 33.2 RDW Std Deviation 44.1 RDW Coeff of [place] 13.2 Plt Count 180 MPV 11.8 H Sodium 137 Potassium 3.6 Chloride 106 Carbon Dioxide 26 Anion Gap 5.0 BUN 14 Creatinine 1.05 Est Cr Clr Drug Dosing 57.6 Est GFR ( Amer) 73.6 Est GFR (Non-Af Amer) 63.5 BUN/Creatinine Ratio 12.9 Glucose 105 H POC Glucose 183 H Calcium 8.1 L 05/15/19 05/15/19 11:08 16:49 WBC RBC Hgb Hct MCV MCH MCHC RDW Std Deviation RDW Coeff of [place] Plt Count MPV Sodium Potassium Chloride Carbon Dioxide Anion Gap BUN Creatinine Est Cr Clr Drug Dosing Est GFR ( Amer) Est GFR (Non-Af Amer) BUN/Creatinine Ratio Glucose POC Glucose 147 H 115 H Calcium PG Care Time/CCT Total # of Minutes Spent Total Time Spent with Patient: Total time spent is greater than 50% in coordination of care (as documented) at patient's floor/unit and/or counseling patient: (1) Diabetes Diabetes mellitus complication status: without complication Diabetes mellitus long term care administrator insulin use: with half-way use Diabetes mellitus type: type 2 Qualified Code(s): E11.9 - Type 2 diabetes mellitus without complications; Z79.4 - intermediate (current) use of insulin (2) Dysphagia Dysphagia type: unspecified Qualified Code(s): R13.10 - Dysphagia, unspecified (3) Dementia Dementia behavioral disturbance: without behavioral disturbance Dementia type: other frontotemporal dementia Qualified Code(s): G31.09 - Other frontotemporal dementia; F02.80 - Dementia in other diseases classified elsewhere without behavioral disturbance (4) Hyperlipidemia Hyperlipidemia type: mixed hyperlipidemia Qualified Code(s): E78.2 - Mixed hyperlipidemia (5) Hypothyroid Hypothyroidism type: acquired Qualified Code(s): E03.9 - Hypothyroidism, unspecified (6) CAD (coronary artery disease), [place] coronary artery Associated angina: without angina [place] vs. transplanted heart: [place] heart Qualified Code(s): I25.10 - Atherosclerotic heart disease of [place] coronary artery without angina pectoris (7) GERD (gastroesophageal reflux disease) Esophagitis presence: esophagitis presence not specified Qualified Code(s): K21.9 - Gastro-esophageal reflux disease without esophagitis
[2019-05-16 06:28] LABS: BUN Creatinine Ratio 16.9 (10-20); Calcium 8.2 mg/dl (8.5-10.1); Creatinine Clr Calc Pharmacy 59.3 ml/min; Est GFR (African American) 76.2; Est GFR (Non-African American) 65.8; Potassium 3.7 mmol/L (3.5-5.1)
[2019-05-16] MEDS: FAMOTIDINE 20 MG TAB PO SCH (07:48)
[2019-05-16] MEDS: INSULIN GLARGINE SOLOSTAR 100 UNITS/ML 3 ML PEN SC SCH (07:49)
[2019-05-16] MEDS: CIPROFLOXACIN 500 MG TAB PO SCH (07:49)
[2019-05-16] MEDS: HEPARIN SOD 5,000 UNIT/0.5 ML VIAL SQ SCH (07:49)
[2019-05-16] MEDS: LACTOBACILLUS ACIDOPHILUS (FLORANEX) TAB PO SCH ×2 (07:49→11:56)
[2019-05-16] MEDS: INSULIN ASPART 100 UNITS/ML 3 ML PEN SC SCH ×2 (07:51→11:55)
--- NOTE | 2019-05-22 18:00 | Discharge Summary ---
Date of Service date of admission - May 12, 2019 date of discharge - May 16, 2019 Admission HPI Per Admitting Provider The patient is an 88-year-old male with a past medical history including Parkinson's, hypothyroidism, hypertension, GERD, BPH, hyperlipidemia, diabetes mellitus and progressive supranuclear palsy, who presents to the emergency department from home, where he has home care several days a week, and physical therapy 3 times per week, along with family care. He was noted by family to be gradually less able to walk with his walker over the past couple weeks, and in general not as interactive as previously. He has a known history of dysphagia associated with Parkinson's, and has been on honey thickened liquids. Upon ER presentation he had a fever, and u/a was suggestive of UTI. Principal Diagnosis septicemia 2nd to e.coli UTI Discharge Exam Constitutional no acute distress ENMT external ear and nose normal, oropharynx normal Respiratory normal respiratory effort, lungs clear to auscultation Auscultation: + diminished lung sounds (bases) Cardiovascular Rate/Rhythm: regular rate and regular rhythm Heart Sounds: normal S1 and normal S2; no murmur Vessels: posterior tibial pulses present and dorsalis pedis pulses present; no JVD Gastrointestinal (Abdomen) normal bowel sounds, soft, nontender, no hepatosplenomegaly NURIS - prostate enlarged but smooth, not boggy, not tender, no nodules. No impaction. Stool brown. Neurologic masked facies Psychiatric Orientation: alert Discharge Data Allergies Allergy/AdvReac Type Severity Reaction Status Date / Time No Known Allergies Allergy Verified 05/12/19 00:17 Consultations PT, OT Ordered Studies US renal/bladder - IMPRESSION: Normal renal ultrasound. Hospital Course (1) Septicemia: 2nd to pansensitive e.coli UTI. 1/2 sets of blood cultures were positive for e.coli. These were drawn at time of admission. Repeat blood cultures later in his stay were negative. He was transitioned from IV antibiotic therapy to oral cipro. At discharge he will complete 11 more days of cipro twice daily. Fortunately his renal u/s did NOT show evidence of complicating kidney stone, and NURIS did NOT show evidence of prostatitis. He improved over the course of his stay. Leukocytosis resolved, appetite and mentation improved, and overall constitution got better. (2) Sepsis due to urinary tract infection: e.coli UTI. see "septicemia" above. renal u/s negative for hydronephrosis or stones. NURIS negative for prostatitis. (3) Metabolic encephalopathy: due to septicemia/UTI. IMPROVED/RESOLVED - he was near baseline by time of discharge per his family. TSH, B12, VBG, ammonia - all wnl. 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 (5) CAD (coronary artery disease), [place] coronary artery: EKG at admission with mild anterior ST changes but NO obvious ischemic symptoms. Troponin was normal. Continue Aspirin 81 mg every morning and clopidogrel 75 mg at bedtime. Continue lisinopril 2.5 mg daily. Beta brown was placed on hold due to bradycardia and, at time of discharge, was discontinued. (6) Diabetes: Received lantus and novolog while here. Control was acceptable. He will resume his normal outpatient regimen at discharge. (7) GERD (gastroesophageal reflux disease): Cont famotidine 20 mg BID (8) Hyperlipidemia: Cont simvastatin 40 mg daily (9) Hypothyroid: TSH wnl Cont synthroid as is (10) Dysphagia: Seen by speech therapy; bedside eval performed. He was cleared for PO intake with thickened liquids (honey thick). He tolerated a minced & moist diet. (11) Bradycardia: Numerous episodes of sinus bradycardia were seen throughout his stay while on telemetry. He never had AV block or pauses. He had the bradycardia even after being off his beta brown for several days. Cause - increased vagal tone? beginnings of SSS? He had no obvious symptoms from this. TSH was wnl. He was set up for a 30-day event monitor just to be sure he is not having AV block or pauses at home. Again beta brown was discontinued at discharge. (12) Ambulatory dysfunction: PT/OT at one point were recommending rehab post-discharge. However, the patient's & family collectively wanted to bring him home. They reassured the care team that he typically has 2 adults/caregivers with him at all times. He will be set up with home health post-discharge. Total Time Total Time Spent Total Time Spent (In Minutes): 40 Total Time Includes: Examination of the Patient, Discharge Planning and Medication Reconciliation Discharge Plan Discharge Items Patient Disposition: Home - Home Health Services Reason For Visit: SEPSIS DUE TO UTI Discharge Diagnosis: 1. septicemia/bacteremia (infection in blood stream) due to UTI (urinary tract infection) - resolved 2. bradycardia - low heart rate - beta brown medication (metoprolol) has been discontinued Activity: Resume your previous activity Non-emergency contact: Primary Care Provider and Cheesemaker Helper Call non-emergency contact if: you have any medication questions, your symptoms worsen and you have a fever Follow-up/Referrals: Joselito Suarez MD [Primary Care Provider] - 05/21/19 2:30 pm (Please, follow up at Dr. Joselito Suarez's office with his associate, Karin Asencio PA-C on SundayMay 21 at 2:30 pm. *If you need to change this appointment, call their office at [phone]. YOU WILL BE RECEIVING A 30 DAY CARDIAC EVENT MONITOR IN THE MAIL. THE KIT WILL INCLUDE EASY TO FOLLOW INSTRUCTIONS. THE RESULTS WILL BE SENT TO DR. JOSELITO SUAREZ AND THE [facility] PHYSICIAN [facility] C[facility] OFFICE.) Cassi Burns PA-C [Physician Freight Adjuster] - 05/29/19 4:00 pm (Please, follow up at [facility] Physician [facility] Cardiology Office with Cassi Burns PA-C on May 29 at 4:00 pm. *The office is located in [address] of [facility], next to this hospital. IF you need to change this appointment, call the office at [phone].) Diet: Carb Consistent or DM2 Liquid Consistency: Honey thick Diet Comment: Minced & Moist textured foods Addtl Attending Provider Instructions: You were treated for bacteremia/septicemia due to urinary tract infection. This means that the urinary infection spread into the blood. The infection is now resolved; the most recent blood cultures were NEGATIVE ensuring sterility of the blood. You improved with IV fluids, IV antibiotics/Oral antibiotics, and time. Your prostate exam did NOT show prostatitis which is infection of the prostate. We incidentally noted that your heart rate at times - especially during sleep - becomes low. Fortunately you are not having symptoms from this. We are recommending that you STOP your metoprolol for now. We are also recommending that you have a 30-day heart monitor at home to check for heart block, irregular heart rhythms, and pauses of the heart. Recommendations - 1. cipro antibiotic - 1 tablet twice daily for 11 more days. Start this TONIGHT, 05/16/19. 2. lactinex probiotics (to help prevent diarrhea) - 3 tabs three times a day for 10 days. Start upon return home. 3. STOP your metoprolol. 4. WEAR the heart monitor for 30 days. This will be mailed to your home in the next week. It will contain instructions on its use. 5. Resume your normal insulin regimen. 6. Follow-up appointments - see separate section. Return to [facility] if - * you develop fevers over 100.5 degrees * you have worsening fatigue, lethargy, or sleepiness * you develop severe diarrhea * you have difficulty passing your urine * any other concerns Pending Studies at Discharge: No Stand-Alone Forms: My [facility], Smoking Cessation Medications and DC Order Prescriptions: New Lactinex 1 million cell tablet,chewable 3 tab PO TID 10 Days Qty: 90 RF: 0 ciprofloxacin HCl 500 mg tablet 500 mg PO BID 11 Days Qty: 22 RF: 0 Continued Novolin N NPH U-100 Insulin 100 unit/mL suspension 30 unit SUBCUT .COMPLEX RF: 0 calcium citrate 250 mg calcium tablet 250 mg PO DAILY RF: 0 polyethylene glycol 3350 17 gram/dose powder See Rx Instructions .ROUTE .COMPLEX RF: 0 Novolin R Regular U-100 Insuln 100 unit/mL solution 1 sliding scale dose SQ USEASDIRECTD Qty: 10 RF: 3 multivitamin Tablet 1 tab PO QAM RF: 0 clopidogrel 75 mg tablet 75 mg PO HS RF: 0 aspirin 81 mg tablet,delayed release (DR/EC) 81 mg PO QAM RF: 0 terazosin 2 mg capsule 4 mg PO HS RF: 0 ranitidine HCl 150 mg tablet 150 mg PO BIDM RF: 0 lisinopril 2.5 mg tablet 2.5 mg PO QAM RF: 0 cholecalciferol (vitamin D3) [Vitamin D3] 2,000 unit Tablet 4,000 unit PO QAM RF: 0 levothyroxine 75 mcg Capsule 75 mcg PO QAM RF: 0 simvastatin [Zocor] 40 mg tablet 40 mg PO HS RF: 0 vitamin B complex Tablet 1 tab PO DAILY RF: 0 Discontinued metoprolol tartrate 25 mg tablet 12.5 mg PO BID RF: 0 Discharge Orders: Discharge Order (Routine); Ordered 05/16/19 Ordered By: Buzz Persaud/Other Patient Handouts: UTI, Sepsis, ED Bradycardia Admission Data Admit Date/Time: 05/12/19 02:10 Attending Provider: Buzz Gardiner Admit Provider: Trey Story Primary Care Provider: Joselito Suarez Other Providers: Trey Story ; [facility] ; [facility] Other Interventions: Discharge Summary Assessment (RN) Last Done: 05/16/19 12:24 DC Date/Time DO NOT enter until pt leaves facility: 05/16/19 14:04
== END 2019-05-16 14:04 | disposition home health service (06) | DRG 871 ==
LOC: ED 23:25 → SUATTDRO 05-12 02:10 → 2S 05-12 02:10